=== PATIENT | female | born 1975 | race Caucasian/White ===

== ENCOUNTER 2020-06-22 19:10 | Emergency (ER) | payer BC ==
--- NOTE | 2020-06-22 19:24 | ED Physician Documentation ---
History of Present Illness - Stated complaint Stated Complaint: FEMALE - Chief complaint Chief Complaint: UTI - History obtained from History obtained from: Patient - History of Present Illness Timing: Yesterday Pain level now: 8 Improved by: rest Worsened by: movement - Additonal information Additional information: since yesterday, has had bilateral lower back pain with mild urinary frequency. Today, these symptoms gradually worsened and now associated with burning dysuria and malodorous urine. Back pain (bilateral) has progressed to also cause nausea and vomiting. Took azo without improvement. Review of Systems Constitutional: denies: Fever, Chills, Sweats Cardiac: reports: Reviewed and negative Respiratory: reports: Reviewed and negative GI: reports: Nausea, Vomiting. denies: Abdominal Pain : reports: Dysuria, Frequency. 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: LEEP (Cervical surgery), Tubal ligation - Present Medications Home Medications: Ambulatory Orders Medication Instructions Recorded Confirmed Multivitamin [Multivitamins] 1 each PO DAILY 06/07/13 01/20/15 Metformin HCl 500 mg PO BID 11/08/14 01/20/15 Gabapentin 300 mg PO DAILY 01/20/15 01/20/15 Oxycodone HCl/Acetaminophen 1 - 2 each PO Q6H PRN #15 tablet 01/20/15 [Percocet 5-325 mg Tablet] cephALEXin [Keflex] 500 mg PO Q6H 10 Days capsule 01/20/15 HYDROcod/ACETAM 5/325 [[place] 5/325] 1 - 2 ea PO Q6H PRN #15 tablet 06/22/20 Nitrofurantoin Monohyd/M-Cryst 100 mg PO BID #14 capsule 06/22/20 [Macrobid 100 mg Capsule] Ondansetron Odt [Zofran] 4 mg TL Q6H PRN #10 tablet 06/22/20 - Allergies Allergies/Adverse Reactions: Allergies Allergy/AdvReac Type Severity Reaction Status Date / Time Sulfa (Sulfonamide Allergy Intermediate welts Verified 06/22/20 19:16 Antibiotics) adhesive tape Allergy Hives Verified 06/22/20 19:16 - Living Situation Living Arrangement: reports: At home - Social History Does the pt smoke?: Yes Smoking Status: Current every day smoker Does the pt drink ETOH?: No Does the pt have substance abuse?: No - POLST Patient has POLST: No PD ED PE NORMAL - Vitals Vital signs reviewed: Yes - General General: Alert and oriented X 3, Well developed/nourished, Other (waxing and waning discomfort during H+P) - HEENT HEENT: Moist mucous membranes - Neck Neck: Supple, no meningeal sign - Cardiac Cardiac: RRR, No murmur - Respiratory Respiratory: No respiratory distress, Clear bilaterally - Abdomen Abdomen: Soft PD ED PE EXPANDED - Abdomen Abdomen: Tender to palpation (diffusely tender without rebound ) - Back Back: CVA TTP right, CVA TTP left Results - Vitals Vitals: Vital Signs - 24 hr 06/22/20 06/22/20 06/22/20 19:12 21:15 23:37 Temperature 37.1 C 37 C 36.3 C L Heart Rate 98 68 80 Respiratory 20 16 16 Rate Blood Pressure 189/88 H 156/81 H 165/95 H O2 Saturation 97 97 100 Oxygen O2 Source Room air - Labs Labs: Laboratory Tests 06/22/20 06/22/20 06/22/20 19:29 19:45 19:45 WBC 13.4 H RBC 4.79 Hgb 15.0 Hct 44.2 MCV 92.3 MCH 31.3 H MCHC 33.9 RDW 13.3 Plt Count 141 MPV 11.0 H Neut # (Auto) 9.6 H Lymph # (Auto) 2.7 [place] # (Auto) 1.0 Eos # (Auto) 0.1 Baso # (Auto) 0.1 Absolute Nucleated RBC 0.00 Nucleated RBC % 0.0 Sodium 134 L Potassium 3.5 Chloride 94 L Carbon Dioxide 23 Anion Gap 17.0 H BUN 12 Creatinine 0.7 Estimated GFR (MDRD) 92 Glucose 384 H Calcium 9.1 Total Bilirubin 0.5 AST 31 ALT 50 Alkaline Phosphatase 90 Total Protein 7.0 Albumin 3.9 Globulin 3.1 Albumin/Globulin Ratio 1.3 Lipase 57 H Urine Color ORANGE Urine Clarity CLEAR Urine pH 5.0 Ur Specific [place] 1.015 Urine Protein Urine Glucose (UA) Urine Ketones Urine Occult Blood Urine Nitrite Urine Bilirubin NEGATIVE Urine Urobilinogen Ur Leukocyte Esterase Urine RBC 6-10 H Urine WBC 11-25 H Ur Squamous Epith Cells MOD Squamous H Urine Bacteria Few Ur Microscopic Review INDICATED Urine Culture Comments NOT INDICATED - Rads (name of study) CT A/P with IV contrast Radiology: Prelim report reviewed, See rad report PD MEDICAL DECISION MAKING - ED course Complexity details: reviewed results, re-evaluated patient, considered differential, d/w patient Departure - Departure Disposition: 01 Home, Self Care Clinical Impression: Urinary tract infection Condition: Good Instructions: ED UTI Cystitis Female Prescriptions: Nitrofurantoin Monohyd/M-Cryst [Macrobid 100 mg Capsule] 100 mg PO BID #14 capsule HYDROcod/ACETAM 5/325 [[place] 5/325] 1 - 2 ea PO Q6H PRN #15 tablet PRN Reason: Pain Ondansetron Odt [Zofran] 4 mg TL Q6H PRN #10 tablet PRN Reason: Nausea / Vomiting Discharge Date/Time: 06/22/20 23:50
[2020-06-22] MEDS ORDERED: ONDANSETRON 4 MG/2 ML VIAL IVP STA ×2 (19:37→22:51)
[2020-06-22] MEDS ORDERED: SODIUM CHLORIDE 0.9% 1,000 ML IV STA (19:37)
[2020-06-22] MEDS ORDERED: KETOROLAC 30 MG/ML VIAL IVP STA (19:38)
[2020-06-22 19:51] LABS: BASOPHILS # (AUTO) 0.1 10^3/uL (0.0-0.1); BASOPHILS % (AUTO) 0.4 %; EOSINOPHILS # (AUTO) 0.1 10^3/uL (0.0-0.7); EOSINOPHILS % (AUTO) 0.6 %; LYMPHOCYTES # (AUTO) 2.7 10^3/uL (1.5-3.5); LYMPHOCYTES % (AUTO) 20.1 %; MEAN CORPUSCULAR HEMOGLOBIN 31.3 pg (27.0-31.0); MEAN CORPUSCULAR HGB CONC 33.9 g/dL (32.0-36.0); MEAN CORPUSCULAR VOLUME 92.3 fL (81.0-99.0); MONOCYTES % (AUTO) 7.1 %; NEUTROPHILS # (AUTO) 9.6 10^3/uL (1.5-6.6); NEUTROPHILS % (AUTO) 71.4 %; PLT - PLATELET COUNT 141 10^3/uL (130-450); RED BLOOD COUNT 4.79 10^6/uL (4.20-5.40); RED CELL DISTRIBUTION WIDTH 13.3 % (12.0-15.0); WHITE BLOOD COUNT 13.4 x10^3/uL (4.8-10.8)
[2020-06-22 20:06] LABS: ALBUMIN 3.9 g/dL (3.2-5.5); ALBUMIN/GLOBULIN RATIO 1.3 (1.0-2.2); BILIRUBIN,TOTAL 0.5 mg/dL (0.2-1.0); CALCIUM 9.1 mg/dL (8.5-10.3); CREATININE 0.7 mg/dL (0.4-1.0)
[2020-06-22 20:23] LABS: BILIRUBIN,URINE NEGATIVE (NEGATIVE)
[2020-06-22 20:31] LABS: CLARITY,URINE CLEAR (CLEAR)
[2020-06-22 20:33] LABS: BACTERIA,URINE Few /HPF (None Seen); SQUAMOUS EPITHELIAL CELL,UR MOD Squamous (<= Few)
[2020-06-22] MEDS ORDERED: IOVERSOL 320 100 ML VIAL IVP ONE ×2 (21:11→21:37)
--- NOTE | 2020-06-22 22:05 | CT Report ---
PROCEDURE: Abdomen/Pelvis W INDICATIONS: abd. pain CONTRAST: IV CONTRAST: Optiray 320 ml: 100 PO CONTRAST: *NO PO CONTRAST TECHNIQUE: After the administration of intravenous contrast, 5 mm thick sections acquired from the diaphragms to the symphysis. 5 mm thick coronal and sagittal reformats were acquired. For radiation dose reducti on, the following was used: automated exposure control, adjustment of mA and/or kV according to luís ent size. COMPARISON: None. FINDINGS: Image quality: Excellent. ABDOMEN: Lung bases: Lung bases are clear. Heart size is normal. Solid organs: The liver is diffusely enlarged with hepatic steatosis. Spleen is normal in size. Gallb ladder is unremarkable. Biliary system is non dilated. Pancreas enhances normally. No adrenal nodu les. Kidneys demonstrate normal size and enhancement, without hydronephrosis. Peritoneum and bowel: Bowel loops demonstrate normal wall thickness and caliber. No free fluid or a ir. Nodes and vessels: No retroperitoneal or mesenteric adenopathy by size criteria. Aorta and inferior vena cava are normal in size. Miscellaneous: No ventral hernias. PELVIS: Genitourinary: Bladder wall thickness is normal. Miscellaneous: No inguinal hernias or adenopathy. 4.1 cm right adnexal cyst. Bilateral tubal ligati on clips. Bones: No suspicious bony lesions. No vertebral body compression fractures. IMPRESSION: 1. Hepatomegaly, diffuse hepatic steatosis. 2. 4.1 cm right adnexal cyst. 3. No other significant findings. Reviewed by: Mingo James MD on 06/22/2020 10:04 PM PDT Approved by: Mingo James MD on 06/22/2020 10:04 PM PDT Station ID: [id number]
[2020-06-22 23:38] VITALS: BP 165/95
[2020-06-22] MEDS ORDERED: NITROFURANTOIN MACRO 100 MG CAPSULE PO STA (23:39)
== END 2020-06-22 23:50 | disposition home or self-care (01) ==
LOC: ED 19:10
DX: N39.0 Urinary tract infection, site not specified (principal); K76.0 Fatty (change of) liver, not elsewhere classified; E11.9 Type 2 diabetes mellitus without complications; Z79.84 Long term (current) use of oral hypoglycemic drugs; F17.200 Nicotine dependence, unspecified, uncomplicated
CPT/HCPCS: 36415; 74177; 80053; 81001; 83690; 85025; 96361; 96374; 96375; 99284; A9270; Q9967; 81003; 87086

== ENCOUNTER 2020-07-11 09:25 | Outpatient (CLI) | payer BC ==
[2020-07-11 14:54] LABS: BASOPHILS % (AUTO) 0.3 %; EOSINOPHILS # (AUTO) 0.1 10^3/uL (0.0-0.7); EOSINOPHILS % (AUTO) 1.1 %; HGB - HEMOGLOBIN 15.8 g/dL (12.0-16.0); LYMPHOCYTES # (AUTO) 2.8 10^3/uL (1.5-3.5); LYMPHOCYTES % (AUTO) 27.6 %; MEAN CORPUSCULAR HEMOGLOBIN 30.3 pg (27.0-31.0); MEAN CORPUSCULAR HGB CONC 32.7 g/dL (32.0-36.0); MEAN CORPUSCULAR VOLUME 92.7 fL (81.0-99.0); MEAN PLATELET VOLUME 10.4 fL (7.9-10.8); MONOCYTES # (AUTO) 0.6 10^3/uL (0.0-1.0); MONOCYTES % (AUTO) 5.9 %; NEUTROPHILS # (AUTO) 6.5 10^3/uL (1.5-6.6); NEUTROPHILS % (AUTO) 64.6 %; RED BLOOD COUNT 5.21 10^6/uL (4.20-5.40); RED CELL DISTRIBUTION WIDTH 12.7 % (12.0-15.0)
[2020-07-11 15:16] LABS: PLATELET ESTIMATE, MANUAL NORMAL (130-450,000) (NORMAL); PLATELET MORPHOLOGY PLATELET CLUMPING (NORMAL); RBC MORPHOLOGY (MULTIPLE) NORMAL APPEARANCE (NORMAL)
[2020-07-11 15:23] LABS: ALBUMIN 4.1 g/dL (3.2-5.5); ALBUMIN/GLOBULIN RATIO 1.2 (1.0-2.2); ALKALINE PHOSPHATASE 86 IU/L (42-121); ALT ALANINE AMINOTRANSFERASE 59 IU/L (10-60); AST ASPARTATE AMINOTRANSFERASE 34 IU/L (10-42); BILIRUBIN,TOTAL 0.8 mg/dL (0.2-1.0); BUN - BLOOD UREA NITROGEN 12 mg/dL (6-20); CALCIUM 9.4 mg/dL (8.5-10.3); CARBON DIOXIDE - CO2 25 mmol/L (21-32); CHLORIDE 100 mmol/L (101-111); CHOL/HDL RATIO 6.4 (<4.4); CHOLESTEROL 270 mg/dL; CREATININE 0.7 mg/dL (0.4-1.0); GLUCOSE 271 mg/dL (70-100); HDL CHOLESTEROL 42 mg/dL; SODIUM 135 mmol/L (135-145); TOTAL PROTEIN 7.5 g/dL (6.7-8.2)
[2020-07-11 15:36] LABS: CREATININE,URINE 163.2 mg/dL; MICROALBUM/CREATININE RATIO,UR 134.2 ug/mg (<30.0); MICROALBUMIN,URINE 21.9 mg/dL (0-300.0)
[2020-07-11 15:45] LABS: LDL CHOLESTEROL,DIRECT 187 mg/dL; LDLD/HDL RATIO 4.5 (<4.4)
[2020-07-11 20:43] LABS: HEMOGLOBIN A1c% 12.3 % (4.27-6.07)
== END 2020-07-11 09:26 | disposition home or self-care (01) ==
LOC: LAB.S 09:25
PROVIDERS: ATTEND Nurse Practitioner Family
DX: E11.9 Type 2 diabetes mellitus without complications (principal); R03.0 Elevated blood-pressure reading, without diagnosis of hypertension
CPT/HCPCS: 36415; 80053; 80061; 82043; 82570; 83036; 83721; 84443; 85025

== ENCOUNTER 2020-08-13 08:34 | Outpatient (CLI) | payer BC ==
--- NOTE | 2020-08-13 11:42 | Ultrasound Report ---
PROCEDURE: Abdomen Complete INDICATIONS: +MURPHYS SIGN TECHNIQUE: Real-time scanning was performed of the abdominal and retroperitoneal organs, with image documentatio n. COMPARISON: None. FINDINGS: Liver: The liver measures 19.5 cm in length and demonstrates increased echogenicity. Gallbladder: The gallbladder wall measures 3 mm in diameter. No stones, sludge, pericholecystic fluid , or sonographic Hidalgo sign. A 4 mm diameter gallbladder polyp is noted in the fundus. Biliary ducts: Intrahepatic bile ducts are non-dilated. Extrahepatic bile duct caliber measures 5 m m. Normal is 6-7 mm or less in diameter, or 10 mm or less post-cholecystectomy. Pancreas: Visualized portions of the pancreas are sonographically normal. The tail is only partiall y visualized. Spleen: Spleen is normal in size and homogeneous in echotexture. Kidneys: Kidneys are normal in size and echotexture. Right kidney measures 12.7 cm long; left kidne y measures 13.7 cm long. No hydronephrosis or nephrolithiasis. No solid masses. There is a 1.2 cm right renal anechoic cyst. Aorta: Visualized aorta is normal in caliber at less than 3 cm. Iliacs: Proximal common iliac arteries are normal in caliber at less than 2.5 cm. IVC: Intrahepatic inferior vena cava is patent. Miscellaneous: No free abdominal fluid. IMPRESSION: 1. No cholelithiasis or findings to suggest choledocholithiasis or acute cholecystitis. 2. 4 mm gallbladder polyp. Given small size, no further follow-up recommended. 3. Hepatic steatosis and hepatomegaly. Reviewed by: Franchesca Lau MD on 08/13/2020 11:40 AM PDT Approved by: Franchesca Lau MD on 08/13/2020 11:40 AM PDT Station ID: [id number]
== END 2020-08-13 08:35 | disposition home or self-care (01) ==
LOC: DI 08:34
PROVIDERS: ATTEND Nurse Practitioner Family
DX: K82.4 Cholesterolosis of gallbladder (principal); K76.0 Fatty (change of) liver, not elsewhere classified
CPT/HCPCS: 76700

== ENCOUNTER 2020-08-25 09:19 | Outpatient (CLI) | payer BC ==
[2020-08-25 17:22] LABS: ALBUMIN 4.1 g/dL (3.2-5.5); ALBUMIN/GLOBULIN RATIO 1.3 (1.0-2.2); ALKALINE PHOSPHATASE 54 IU/L (42-121); ALT ALANINE AMINOTRANSFERASE 33 IU/L (10-60); AST ASPARTATE AMINOTRANSFERASE 20 IU/L (10-42); BILIRUBIN,TOTAL 0.5 mg/dL (0.2-1.0); BUN - BLOOD UREA NITROGEN 15 mg/dL (6-20); CARBON DIOXIDE - CO2 24 mmol/L (21-32); CHLORIDE 101 mmol/L (101-111); CHOLESTEROL 95 mg/dL; CREATININE 0.6 mg/dL (0.4-1.0); GLUCOSE 128 mg/dL (70-100); HDL CHOLESTEROL 32 mg/dL; LDL CHOLESTEROL,CALCULATED 31 mg/dL; SODIUM 135 mmol/L (135-145); TOTAL PROTEIN 7.2 g/dL (6.7-8.2); VLDL CHOLESTEROL 32 mg/dL
== END 2020-08-25 09:20 | disposition home or self-care (01) ==
LOC: LAB.S 09:19
PROVIDERS: ATTEND Nurse Practitioner Family
DX: E78.2 Mixed hyperlipidemia (principal)
CPT/HCPCS: 36415; 80053; 80061; 83721

== ENCOUNTER 2020-10-03 07:03 | Outpatient (CLI) | payer BC ==
[2020-10-03 16:28] LABS: CHOLESTEROL 117 mg/dL; HDL CHOLESTEROL 39 mg/dL; LDL CHOLESTEROL,CALCULATED 47 mg/dL; LDL/HDL RATIO 1.2 (<4.4); VLDL CHOLESTEROL 31 mg/dL
[2020-10-03 19:45] LABS: HEMOGLOBIN A1c% 8.5 % (4.27-6.07)
== END 2020-10-03 07:04 | disposition home or self-care (01) ==
LOC: LAB.S 07:03
PROVIDERS: ATTEND Nurse Practitioner Family
DX: E78.2 Mixed hyperlipidemia (principal); E11.65 Type 2 diabetes mellitus with hyperglycemia
CPT/HCPCS: 36415; 80061; 83036; 83721

== ENCOUNTER 2020-10-30 09:25 | Outpatient (CLI) | payer BC ==
[2020-10-30 20:20] LABS: HEMOGLOBIN A1c% 7.5 % (4.27-6.07)
== END 2020-10-30 09:26 | disposition home or self-care (01) ==
LOC: LAB.S 09:25
PROVIDERS: ATTEND Nurse Practitioner Family
DX: E11.65 Type 2 diabetes mellitus with hyperglycemia (principal)
CPT/HCPCS: 36415; 83036

== ENCOUNTER 2021-01-06 09:27 | Outpatient (CLI) | payer BC ==
[2021-01-06 20:39] LABS: ESTIMATED AVERAGE GLUCOSE 154 mg/dL (70-100)
== END 2021-01-06 09:28 | disposition home or self-care (01) ==
LOC: LAB.S 09:27
PROVIDERS: ATTEND Nurse Practitioner Family
DX: E11.65 Type 2 diabetes mellitus with hyperglycemia (principal)
CPT/HCPCS: 36415; 83036

== ENCOUNTER 2021-02-20 20:49 | Emergency (ER) | payer BC ==
[2021-02-20] MEDS ORDERED: ONDANSETRON 4 MG/2 ML VIAL IVP STA (21:07)
[2021-02-20 21:34] LABS: BASOPHILS % (AUTO) 0.3 %; EOSINOPHILS # (AUTO) 0.3 10^3/uL (0.0-0.7); EOSINOPHILS % (AUTO) 2.2 %; HCT - HEMATOCRIT 39.7 % (37.0-47.0); HGB - HEMOGLOBIN 12.9 g/dL (12.0-16.0); LYMPHOCYTES # (AUTO) 3.4 10^3/uL (1.5-3.5); LYMPHOCYTES % (AUTO) 22.6 %; MEAN CORPUSCULAR HEMOGLOBIN 29.3 pg (27.0-31.0); MEAN CORPUSCULAR HGB CONC 32.5 g/dL (32.0-36.0); MONOCYTES # (AUTO) 0.9 10^3/uL (0.0-1.0); MONOCYTES % (AUTO) 5.8 %; NEUTROPHILS # (AUTO) 10.5 10^3/uL (1.5-6.6); NEUTROPHILS % (AUTO) 68.8 %; PLT - PLATELET COUNT 273 10^3/uL (130-450); RED BLOOD COUNT 4.41 10^6/uL (4.20-5.40); RED CELL DISTRIBUTION WIDTH 12.7 % (12.0-15.0); WHITE BLOOD COUNT 15.2 x10^3/uL (4.8-10.8)
[2021-02-20 21:47] LABS: ALBUMIN 4.6 g/dL (3.2-5.5); ALBUMIN/GLOBULIN RATIO 1.6 (1.0-2.2); BILIRUBIN,TOTAL 0.6 mg/dL (0.2-1.0); CALCIUM 9.7 mg/dL (8.5-10.3); CREATININE 0.7 mg/dL (0.4-1.0); POTASSIUM 3.6 mmol/L (3.5-5.0); TOTAL PROTEIN 7.5 g/dL (6.7-8.2)
[2021-02-20 21:53] LABS: BILIRUBIN,URINE NEGATIVE (NEGATIVE); GLUCOSE, URINE (UA) NEGATIVE (NEGATIVE); KETONES,URINE (UA) NEGATIVE (NEGATIVE); LEUKOCYTE ESTERASE, URINE TRACE (NEGATIVE); NITRITE,URINE NEGATIVE (NEGATIVE); OCCULT BLOOD,URINE LARGE (NEGATIVE); PROTEIN,URINE 30 mg/dL (NEGATIVE); UROBILINOGEN,URINE 0.2 (NORMAL) E.U./dL (NORMAL)
[2021-02-20 21:55] LABS: CLARITY,URINE HAZY (CLEAR); HCG UR QUAL NEGATIVE
[2021-02-20 22:01] LABS: BACTERIA,URINE Few /HPF (None Seen); RBC,URINE TNTC /HPF (0-5); SQUAMOUS EPITHELIAL CELL,UR FEW Squamous (<= Few)
[2021-02-20] MEDS ORDERED: PROMETHAZINE INJ 25 MG in SODIUM CHLORIDE 0.9% 50 ML IV STA (22:08)
[2021-02-20] MEDS ORDERED: PROMETHAZINE 25 MG/1 ML VIAL ONE (22:23)
[2021-02-20] MEDS ORDERED: MAG HYDROX/AL HYDROX/SIMETH 30 ML UDC PO STA (22:37)
[2021-02-20] MEDS ORDERED: SUCRALFATE 1 GM/10 ML UDC PO STA (22:37)
[2021-02-20] MEDS ORDERED: LIDOCAINE VISCOUS 2% 15 ML UDC MM STA (22:37)
--- NOTE | 2021-02-20 22:37 | ED Physician Documentation ---
PD HPI ABD PAIN - Stated complaint Stated Complaint: RT ABD PX/NAUSEA - Chief complaint Chief Complaint: Abd Pain - History obtained from History obtained from: Patient - History of Present Illness Timing - onset: Today Timing - duration: Hours Timing - details: Abrupt onset, Still present Quality: Sharp, Pain Location: Epigastric, LUQ Radiation: No: Chest, , Lower back, Left flank, Left shoulder, Right flank, Right shoulder, Upper back Improved by: Laying still, Vomiting Worsened by: Eating, Palpation Associated symptoms: Nausea, Vomiting, Diarrhea. No: Fever Similar symptoms before: No diagnosis Recently seen: Surgery - Additional information Additional information: 45-year-old female with a history of diabetes has developed acute left upper quadrant abdominal pain today after eating a quesadilla at 2:00 in the afternoon. She had onset of the pain several hours later it has been severe she has been unable to eat dinner to concentrate on anything. She has nausea and vomiting associated with this and she has had episodes of these previously but none for about 5 years. She has recently had surgery on her right shoulder and following that she was taking some ibuprofen and has switched to meloxicam and has been on meloxicam daily. She denies any alcohol use and denies any current use of ibuprofen or Aleve. She has previously had investigation of this to include an upper GI series and a colonoscopy. 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: LEEP (Cervical surgery), Tubal ligation - Present Medications Home Medications: Ambulatory Orders Medication Instructions Recorded Confirmed Multivitamin [Multivitamins] 1 each PO DAILY 06/07/13 01/20/15 Atorvastatin Calcium 20 mg ORAL DAILY 02/20/21 02/20/21 Insulin Glargine [Lantus Solostar] 43 unit SUBQ QPM 02/20/21 02/20/21 Lisinopril [Prinivil] 5 mg PO DAILY 02/20/21 02/20/21 Meloxicam [Mobic] 1 tablet PO DAILY 02/20/21 02/20/21 Metformin HCl [Metformin ER 1,000 mg ORAL BID 02/20/21 02/20/21 Gastric] Sucralfate [Carafate] 1 gm PO ACHS #60 tablet 02/20/21 - Allergies Allergies/Adverse Reactions: Allergies Allergy/AdvReac Type Severity Reaction Status Date / Time Sulfa (Sulfonamide Allergy Intermediate welts Verified 02/20/21 20:58 Antibiotics) adhesive tape Allergy Hives Verified 02/20/21 20:58 - Social History Does the pt smoke?: Yes Smoking Status: Current every day smoker Does the pt drink ETOH?: No Does the pt have substance abuse?: No - Immunizations Immunizations are current?: No - POLST Patient has POLST: No PD ED PE NORMAL - Vitals Vital signs reviewed: Yes (hypertensive) - General General: Alert and oriented X 3, Well developed/nourished, Other (appears nauseated and in pain ) - HEENT HEENT: Atraumatic, PERRL, EOMI - Neck Neck: Supple, no meningeal sign - Cardiac Cardiac: RRR, No murmur - Respiratory Respiratory: No respiratory distress, Clear bilaterally - Abdomen Abdomen: Normal bowel sounds, Soft, Non distended, No organomegaly, Other (epigastric and LUQ pain to palpation. ) - Back Back: No CVA TTP, No spinal TTP - Derm Derm: Normal color, Warm and dry, No rash - Extremities Extremities: No deformity, No edema - Neuro Neuro: Alert and oriented X 3, branch credit counselor 2-12 intact, No motor deficit, No sensory deficit, Normal speech Eye Opening: Spontaneous Motor: Obeys Commands Verbal: Oriented GCS Score: 15 - Psych Psych: Normal mood, Normal affect Results - Vitals Vitals: Vital Signs - 24 hr 02/20/21 02/20/21 02/20/21 20:57 21:32 23:10 Temperature 36.8 C Heart Rate 91 83 Respiratory 21 15 16 Rate Blood Pressure 186/106 H 167/81 H 162/82 H O2 Saturation 99 99 97 Oxygen O2 Source Room air - Labs Labs: Laboratory Tests 02/20/21 02/20/21 02/20/21 21:28 21:28 21:46 WBC 15.2 H RBC 4.41 Hgb 12.9 Hct 39.7 MCV 90.0 MCH 29.3 MCHC 32.5 RDW 12.7 Plt Count 273 MPV 9.0 Neut # (Auto) 10.5 H Lymph # (Auto) 3.4 [place] # (Auto) 0.9 Eos # (Auto) 0.3 Baso # (Auto) 0.0 Absolute Nucleated RBC 0.00 Nucleated RBC % 0.0 Sodium 141 Potassium 3.6 Chloride 104 Carbon Dioxide 26 Anion Gap 11.0 BUN 22 H Creatinine 0.7 Estimated GFR (MDRD) 91 Glucose 146 H Calcium 9.7 Total Bilirubin 0.6 AST 27 ALT 40 Alkaline Phosphatase 53 Total Protein 7.5 Albumin 4.6 Globulin 2.9 Albumin/Globulin Ratio 1.6 Lipase 51 Urine Color YELLOW Urine Clarity HAZY Urine pH 6.0 Ur Specific [place] >=1.030 H Urine Protein 30 H Urine Glucose (UA) NEGATIVE Urine Ketones NEGATIVE Urine Occult Blood LARGE H Urine Nitrite NEGATIVE Urine Bilirubin NEGATIVE Urine Urobilinogen 0.2 (NORMAL) Ur Leukocyte Esterase TRACE H Urine RBC TNTC H Urine WBC 6-10 H Ur Squamous Epith Cells FEW Squamous Urine Bacteria Few Ur Microscopic Review INDICATED Urine Culture Comments INDICATED Urine HCG, Qual 02/20/21 21:46 WBC RBC Hgb Hct MCV MCH MCHC RDW Plt Count MPV Neut # (Auto) Lymph # (Auto) [place] # (Auto) Eos # (Auto) Baso # (Auto) Absolute Nucleated RBC Nucleated RBC % Sodium Potassium Chloride Carbon Dioxide Anion Gap BUN Creatinine Estimated GFR (MDRD) Glucose Calcium Total Bilirubin AST ALT Alkaline Phosphatase Total Protein Albumin Globulin Albumin/Globulin Ratio Lipase Urine Color Urine Clarity Urine pH Ur Specific [place] Urine Protein Urine Glucose (UA) Urine Ketones Urine Occult Blood Urine Nitrite Urine Bilirubin Urine Urobilinogen Ur Leukocyte Esterase Urine RBC Urine WBC Ur Squamous Epith Cells Urine Bacteria Ur Microscopic Review Urine Culture Comments Urine HCG, Qual NEGATIVE PD MEDICAL DECISION MAKING - ED course Complexity details: reviewed old records, reviewed results, re-evaluated patient, considered differential, d/w patient ED course: 45-year-old female with an episode of nausea vomiting and epigastric abdominal pain does not have relief of her nausea with Zofran and we subsequently administered 25 mg of Phenergan also without relief. We eventually were able to get relief of the nausea with 2 mg of Haldol given intravenously. Following that she was administered a GI cocktail consisting of viscous lidocaine Mylanta and Carafate. She had some relief of her epigastric pain and has some persistence of the left upper quadrant pain. She has no CVA tenderness. She has no urinary tract symptoms. She is on her menses. The findings on her laboratory evaluation show normal electrolytes and there is evidence of dehydration on the urine specific gravity and she is administered saline as well. She is given a dose of Protonix. Her exam and findings are consistent with a gastritis and the suspicion is this is related to the meloxicam. We will treat for gastritis and the patient will use an alternative form of pain medication. Departure - Departure Disposition: 01 Home, Self Care Clinical Impression: Dehydration Gastritis Qualifiers: Gastritis type: unspecified gastritis Chronicity: acute Gastritis bleeding: without bleeding Qualified Code(s): K29.00 - Acute gastritis without bleeding Condition: Stable Instructions: ED PUD Vs Gastritis, ED Dehydration Follow-Up: JESSICA BRIONES ARNP [Primary Care Provider] - Prescriptions: Sucralfate [Carafate] 1 gm PO ACHS #60 tablet Comments: Today it appears your abdominal pain is related to your stomach and this likely represents a gastritis or inflammation to the stomach or duodenum. This can be an ulcer or similar to an ulcer. The treatment recommended is to take something to reduce the acid in your stomach such as Pepcid AC or Nexium. These are available [id number]. Take them regularly for 2 weeks. In addition I have prescribed some Carafate which is used to aid in healing of the stomach lining and. Meloxicam can cause an issue with stomach ulcer. The recommendation is to discontinue this medication and substitute with Tylenol or use topical therapy.
[2021-02-20] MEDS ORDERED: HALOPERIDOL 5 MG/ML VIAL IVP ONE (22:44)
[2021-02-20] MEDS ORDERED: SODIUM CHLORIDE 0.9% 1,000 ML IV STA (23:16)
[2021-02-20] MEDS ORDERED: PANTOPRAZOLE 40 MG VIAL IVP STA (23:28)
[2021-02-21 00:37] VITALS: BP 146/80
== END 2021-02-21 00:30 | disposition home or self-care (01) ==
LOC: ED 20:49
DX: K29.00 Acute gastritis without bleeding (principal); E86.0 Dehydration; E11.9 Type 2 diabetes mellitus without complications; F17.200 Nicotine dependence, unspecified, uncomplicated; Z79.4 Long term (current) use of insulin; Z79.899 Other long term (current) drug therapy
CPT/HCPCS: 36415; 80053; 81001; 81025; 83690; 85025; 87086; 96361; 96365; 96375; 99284; 99285; A9270; J7040; 81003

== ENCOUNTER 2021-05-05 19:37 | Observation (INO) | payer BC ==
--- NOTE | 2021-05-05 20:26 | ED Physician Documentation ---
PD HPI ABD PAIN - Stated complaint Stated Complaint: RT SIDE PX,NAUSEA - Chief complaint Chief Complaint: Abd Pain - History obtained from History obtained from: Patient - History of Present Illness Timing - onset: How many hours ago (4-5), Today Timing - duration: Hours (4-5) Timing - details: Abrupt onset (onset this afternoon of fairly abrupt pain right mid abdomen associated with nausea. Pain has persisted localized to the right mid to lower abd.), Still present Quality: Cramping, Aching, Pain Location: RLQ (initially right mid abdomen, then migrating to right lower.) Radiation: No: Chest, Lower back, Right flank Improved by: No: Eating, Position Worsened by: Moving, Palpation. No: Breathing Associated symptoms: Nausea, Diarrhea (couple of loose stools since onset of pain, but not diarrhea per se.), Loss of appetite. No: Fever, Vomiting, Constipation, Near syncope / syncope Similar symptoms before: Has not had sx before Recently seen: Not recently seen Review of Systems Constitutional: denies: Fever, Chills, Myalgias Nose: denies: Rhinorrhea / runny nose, Congestion Throat: denies: Sore throat Respiratory: denies: Cough GI: reports: Abdominal Pain (just today), Nausea. denies: Vomiting, C onstipation : denies: Dysuria, Frequency, Discharge Neurologic: reports: Generalized weakness. 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: LEEP (Cervical surgery), Tubal ligation - Present Medications Home Medications: Ambulatory Orders Medication Instructions Recorded Confirmed Multivitamin [Multivitamins] 1 each PO DAILY 06/07/13 01/20/15 Atorvastatin Calcium 20 mg ORAL DAILY 02/20/21 02/20/21 Insulin Glargine [Lantus Solostar] 43 unit SUBQ QPM 02/20/21 02/20/21 Meloxicam [Mobic] 1 tablet PO DAILY 02/20/21 02/20/21 Metformin HCl [Metformin ER 1,000 mg ORAL BID 02/20/21 02/20/21 Gastric] Sucralfate [Carafate] 1 gm PO ACHS #60 tablet 02/20/21 lisinopriL [Prinivil] 5 mg PO DAILY 02/20/21 02/20/21 - Allergies Allergies/Adverse Reactions: Allergies Allergy/AdvReac Type Severity Reaction Status Date / Time Sulfa (Sulfonamide Allergy Intermediate welts Verified 05/05/21 19:46 Antibiotics) adhesive tape Allergy Hives Verified 05/05/21 19:46 - Living Situation Living Arrangement: reports: At home - Social History Does the pt smoke?: Yes Smoking Status: Current every day smoker Does the pt drink ETOH?: No Does the pt have substance abuse?: No - Family History Family history: reports: Non contributory - Immunizations Immunizations are current?: No - POLST Patient has POLST: No PD ED PE NORMAL - Vitals Vital signs reviewed: Yes - General General: Alert and oriented X 3, Well developed/nourished, Other (appears in pain right abd.) - HEENT HEENT: Pharynx benign - Neck Neck: Supple, no meningeal sign, No adenopathy - Cardiac Cardiac: No murmur. No: RRR (regular but tachycardic) - Respiratory Respiratory: Clear bilaterally - Abdomen Abdomen: Soft, Non distended, Other (tender right mid to right lower abd with guarding and some percussion tenderness. No rebound at this time. Mild referred tender from periumbilical area. ). No: Normal bowel sounds (diminished) - Female Female : Deferred - Rectal Rectal: Deferred - Back Back: No CVA TTP - Derm Derm: Normal color, Warm and dry - Extremities Extremities: Normal ROM s pain, No edema, No calf tenderness / cord - Neuro Neuro: Alert and oriented X 3, No motor deficit, Normal speech Results - Vitals Vitals: Vital Signs - 24 hr 05/05/21 05/05/21 05/05/21 19:43 19:46 21:46 Temperature 36.3 C L 36.5 C 37.6 C Heart Rate 112 H 112 H 98 Respiratory 20 20 18 Rate Blood Pressure 150/76 H 150/72 H 144/73 H O2 Saturation 99 99 95 Oxygen O2 Source Room air - Labs Labs: Laboratory Tests 05/05/21 05/05/21 05/05/21 20:10 20:14 20:36 WBC 24.0 H RBC 4.44 Hgb 13.0 Hct 39.0 MCV 87.8 MCH 29.3 MCHC 33.3 RDW 13.4 Plt Count 241 MPV 9.7 Neut # (Auto) 20.7 H Lymph # (Auto) 2.1 [place] # (Auto) 1.0 Eos # (Auto) 0.1 Baso # (Auto) 0.1 Absolute Nucleated RBC 0.00 Band Neuts % (Manual) Not Reportable Abnorm Lymph % (Manual) Not Reportable Nucleated RBC % 0.0 Neutrophils # (Manual) Not Reportable Lymphocytes # (Manual) Not Reportable Monocytes # (Manual) Not Reportable Eosinophils # (Manual) Not Reportable Basophils # (Manual) Not Reportable Differential Comment MANUAL=AUTO DIFF Manual Slide Review Indicated Platelet Estimate NORMAL (130-450,000) Platelet Morphology NORMAL APPEARANCE RBC Morph Micro Appear NORMAL APPEARANCE Sodium 135 Potassium 4.0 Chloride 99 L Carbon Dioxide 22 Anion Gap 14.0 H BUN 18 Creatinine 0.9 Estimated GFR (MDRD) 68 L Glucose 207 H Calcium 9.7 Total Bilirubin 1.0 AST 25 ALT 28 Alkaline Phosphatase 57 Total Protein 7.7 Albumin 4.7 Globulin 3.0 Albumin/Globulin Ratio 1.6 Lipase 44 Urine Color YELLOW Urine Clarity CLEAR Urine pH 5.5 Ur Specific [place] >=1.030 H Urine Protein 30 H Urine Glucose (UA) NEGATIVE Urine Ketones 15 H Urine Occult Blood NEGATIVE Urine Nitrite NEGATIVE Urine Bilirubin NEGATIVE Urine Urobilinogen 0.2 (NORMAL) Ur Leukocyte Esterase NEGATIVE Urine RBC None Seen Urine WBC 0-3 Ur Squamous Epith Cells MANY Squamous H Urine Bacteria Rare Urine Mucus Moderate Strands Ur Microscopic Review INDICATED Urine Culture Comments NOT INDICATED Urine HCG, Qual NEGATIVE - Rads (name of study) abd CT Radiology: Prelim report reviewed (acute appendicitis with appendix width up to 10 mm. No perforation nor abscess. ), See rad report PD MEDICAL DECISION MAKING - ED course Complexity details: reviewed results (acute appendicitis), re-evaluated patient (improved pain and nausea with IV meds. ), considered differential (appendix versus kidney stone, versus low pain from gallbladder or other process are considered. Will get labs, UA, and CT. ), d/w patient, d/w cognos consultant (Dr. Mao) Departure - Departure Disposition: ED Place in Observation Condition: Stable Record reviewed to determine appropriate education?: Yes Discharge Date/Time: 05/05/21 23:05
[2021-05-05 20:28] LABS: BILIRUBIN,URINE NEGATIVE (NEGATIVE); GLUCOSE, URINE (UA) NEGATIVE (NEGATIVE); KETONES,URINE (UA) 15 mg/dL (NEGATIVE); LEUKOCYTE ESTERASE, URINE NEGATIVE (NEGATIVE); NITRITE,URINE NEGATIVE (NEGATIVE); OCCULT BLOOD,URINE NEGATIVE (NEGATIVE); PH,URINE 5.5 PH (5.0-7.5); PROTEIN,URINE 30 mg/dL (NEGATIVE); UROBILINOGEN,URINE 0.2 (NORMAL) E.U./dL (NORMAL)
[2021-05-05 20:29] LABS: CLARITY,URINE CLEAR (CLEAR)
[2021-05-05] MEDS ORDERED: KETOROLAC 15 MG/ML VIAL IVP STA (20:35)
[2021-05-05] MEDS ORDERED: SODIUM CHLORIDE 0.9% 1,000 ML IV STA ×2 (20:35→22:19)
[2021-05-05] MEDS ORDERED: HYDROmorphone 1 MG/ML CARPUJECT IVP STA ×2 (20:35→21:34)
[2021-05-05] MEDS ORDERED: ONDANSETRON 4 MG/2 ML VIAL IVP STA (20:35)
[2021-05-05 20:37] LABS: ALBUMIN 4.7 g/dL (3.2-5.5); ALBUMIN/GLOBULIN RATIO 1.6 (1.0-2.2); CALCIUM 9.7 mg/dL (8.5-10.3); CREATININE 0.9 mg/dL (0.4-1.0); TOTAL PROTEIN 7.7 g/dL (6.7-8.2)
[2021-05-05 20:37] LABS: HCG UR QUAL NEGATIVE
[2021-05-05 20:43] LABS: BASOPHILS # (AUTO) 0.1 10^3/uL (0.0-0.1); BASOPHILS % (AUTO) 0.3 %; EOSINOPHILS # (AUTO) 0.1 10^3/uL (0.0-0.7); EOSINOPHILS % (AUTO) 0.3 %; LYMPHOCYTES # (AUTO) 2.1 10^3/uL (1.5-3.5); LYMPHOCYTES % (AUTO) 8.5 %; MEAN CORPUSCULAR HEMOGLOBIN 29.3 pg (27.0-31.0); MEAN CORPUSCULAR HGB CONC 33.3 g/dL (32.0-36.0); MEAN CORPUSCULAR VOLUME 87.8 fL (81.0-99.0); MEAN PLATELET VOLUME 9.7 fL (7.9-10.8); MONOCYTES % (AUTO) 4.1 %; NEUTROPHILS # (AUTO) 20.7 10^3/uL (1.5-6.6); NEUTROPHILS % (AUTO) 86.3 %; PLT - PLATELET COUNT 241 10^3/uL (130-450); RED BLOOD COUNT 4.44 10^6/uL (4.20-5.40); RED CELL DISTRIBUTION WIDTH 13.4 % (12.0-15.0)
[2021-05-05 20:44] LABS: WBC,URINE 0-3 /HPF (0-5)
[2021-05-05 20:45] LABS: BACTERIA,URINE Rare /HPF (None Seen); MUCUS,URINE Moderate Strands; RBC,URINE None Seen /HPF (0-5); SQUAMOUS EPITHELIAL CELL,UR MANY Squamous (<= Few)
[2021-05-05 20:48] LABS: SLIDE REVIEW? Indicated
[2021-05-05] MEDS ORDERED: IOVERSOL 320 100 ML VIAL IVP ONE ×2 (20:48→21:26)
[2021-05-05 21:05] LABS: DIFFERENTIAL COMMENT MANUAL=AUTO DIFF; PLATELET ESTIMATE, MANUAL NORMAL (130-450,000) (NORMAL); PLATELET MORPHOLOGY NORMAL APPEARANCE (NORMAL); RBC MORPHOLOGY (MULTIPLE) NORMAL APPEARANCE (NORMAL)
--- NOTE | 2021-05-05 22:04 | CT Report ---
PROCEDURE: Abdomen/Pelvis W INDICATIONS: right abd pain abrupt today CONTRAST: IV CONTRAST: Optiray 320 ml: 100 PO CONTRAST: *NO PO CONTRAST TECHNIQUE: After the administration of nonionic contrast, 5 mm thick sections acquired from the diaphragms to th e symphysis. 5 mm thick coronal and sagittal reformats were acquired. For radiation dose reduction, the following was used: automated exposure control, adjustment of mA and/or kV according to patient size. COMPARISON: Prior CT abdomen/pelvis 06/22/2020.. FINDINGS: Image quality: Excellent. ABDOMEN: Lung bases: Lung bases are clear. Heart size is normal. Solid organs: Liver and spleen are normal in size and enhancement. Gallbladder appears normal Bili serena system is non dilated. Pancreas enhances normally. No adrenal nodules. Kidneys demonstrate nor mal size and enhancement, without hydronephrosis. Peritoneum and bowel: Bowel loops demonstrate normal wall thickness and caliber. No free fluid or a ir. Nodes and vessels: No retroperitoneal or mesenteric adenopathy by size criteria. Aorta and inferior vena cava are normal in size. Miscellaneous: No ventral hernias. PELVIS: Genitourinary: Bladder wall thickness is normal. Miscellaneous: No inguinal hernias or adenopathy. At the right lower quadrant the appendix is ident ified, and is abnormally edematous with edema tracking into the adjacent cecal mesocolon. An abscess is not seen. The inflamed appendix measures up to 9-10 mm in diameter. Bones: No suspicious bony lesions. No vertebral body compression fractures. IMPRESSION: Acute appendicitis, with edema at the right lower quadrant in the mesenteric fat and wit h mild dilatation of the appendix up to 10 mm in diameter. A periappendiceal abscess has not develope d. Findings immediately called to the emergency room physician caring for the patient. Reviewed by: Delfino Salgado MD on 05/05/2021 10:03 PM PDT Approved by: Delfino Salgado MD on 05/05/2021 10:03 PM PDT Station ID: [id number]
[2021-05-05] MEDS ORDERED: PIPERACILLIN/TAZOBACTAM 3.375 GM in SODIUM CHLORIDE 0.9% MINIBAG 100 ML IV STA (22:19)
[2021-05-05] MEDS ORDERED: ACETAMINOPHEN 325 MG TABLET PO PRN (22:34)
[2021-05-05] MEDS ORDERED: SODIUM CHLORIDE FLUSH 0.9% 10 ML SYRINGE IVP PRN (22:34)
[2021-05-05] MEDS ORDERED: ONDANSETRON 4 MG/2 ML VIAL IVP PRN (22:34)
[2021-05-05] MEDS ORDERED: ZOLPIDEM 5 MG TABLET PO PRN (22:34)
[2021-05-05] MEDS ORDERED: HYDROmorphone 0.5 MG/0.5 ML SYRINGE IVP PRN (22:34)
[2021-05-05] MEDS ORDERED: PROCHLORPERAZINE 10 MG/2 ML VIAL IVP PRN (22:34)
[2021-05-05] MEDS ORDERED: ONDANSETRON ODT 4 MG TABLET TL PRN (22:34)
[2021-05-05] MEDS ORDERED: LACTATED RINGERS 1,000 ML IV SCH (23:00)
[2021-05-05] MEDS: SODIUM CHLORIDE FLUSH 0.9% 10 ML SYRINGE IVP SCH (23:25)
[2021-05-06] MEDS: HYDROmorphone 1 MG/ML CARPUJECT IVP PRN ×5 (01:39→18:38)
[2021-05-06] MEDS: SODIUM CHLORIDE 0.9% 1,000 ML IV SCH ×2 (05:21→14:08)
[2021-05-06] MEDS ORDERED: PIPERACILLIN/TAZOBACTAM 3.375 GM in SODIUM CHLORIDE 0.9% MINIBAG 100 ML IV SCH (06:00)
[2021-05-06] MEDS: SODIUM CHLORIDE FLUSH 0.9% 10 ML SYRINGE IVP SCH ×2 (07:54→17:14)
--- NOTE | 2021-05-06 09:03 | HISTORY & PHYSICAL EXAMINATION ---
Chief Complaint - Chief Complaint Chief Complaint: abdominal pain History of Present Illness - Admitted From Admitted From:: ED - History Obtained From Records Reviewed: yes History obtained from: PT Exam Limitations: none - History of Present Illness HPI Comment/Other: 1 day of progressive right lower quadrant pain. Now hurts to move and take a deep breath. History - Past Medical History Cardiovascular: reports: None Respiratory: reports: None Neuro: reports: None Endocrine/Autoimmune: reports: Type 2 diabetes GI: reports: None GOLD PLATER: reports: None : reports: None HEENT: reports: None Psych: reports: None Musculoskeletal: reports: None, Osteoarthritis Derm: reports: None MRSA Hx?: No - Past Surgical History Ortho: reports: Rotator cuff repair /GOLD PLATER: reports: LEEP (Cervical surgery), Tubal ligation - Family & Social History Living arrangement: At home - POLST Patient has POLST: No Meds/Allgy - Home Medications Home Medications: Ambulatory Orders Medication Instructions Recorded Confirmed Multivitamin [Multivitamins] 1 each PO DAILY 06/07/13 01/20/15 Atorvastatin Calcium 20 mg ORAL DAILY 02/20/21 02/20/21 Insulin Glargine [Lantus Solostar] 43 unit SUBQ QPM 02/20/21 02/20/21 Meloxicam [Mobic] 1 tablet PO DAILY 02/20/21 02/20/21 Metformin HCl [Metformin ER 1,000 mg ORAL BID 02/20/21 02/20/21 Gastric] Sucralfate [Carafate] 1 gm PO ACHS #60 tablet 02/20/21 lisinopriL [Prinivil] 5 mg PO DAILY 02/20/21 02/20/21 - Allergies Allergies/Adverse Reactions: Allergies Allergy/AdvReac Type Severity Reaction Status Date / Time Sulfa (Sulfonamide Allergy Intermediate welts Verified 05/05/21 19:46 Antibiotics) adhesive tape Allergy Hives Verified 05/05/21 19:46 Review of Systems - Constitutional Constitutional: reports: Fatigue (10 pt ros as above otherwise unremarkable) Exam - Vital Signs Reviewed Vital Signs: Yes Vital Signs: Vital Signs x48h Temp Pulse Resp BP BP Pulse Ox 05/06/21 07:37 36.5 C 83 18 114/54 L 99 05/06/21 04:26 36.4 C L 88 22 128/63 96 - Physical Exam General Appearance: positive: No acute distress, Alert Eyes Bilateral: positive: PERRL, EOMI ENT: positive: No signs of dehydration Neck: positive: No JVD Respiratory: positive: Breath sounds nml Cardiovascular: positive: Regular rate & rhythm Abdomen: positive: Tenderness ( right lower quadrant pain and tenderness with peritonitis), Guarding Neurologic/Psychiatric: positive: Oriented x3 Conclusion/Plan - Lab Results Fish Bones: 05/05/21 20:36 05/05/21 20:14 - Diagnostic Imaging Results Diagnostic Imaging Results: positive: Read independently (appendicitis) - Other Other Results/Comments: appendicitis. plan lap appendectomy. parq held and consent obtained.
[2021-05-06] MEDS ORDERED: PROPOFOL 200 MG/20 ML VIAL IVP ONE ×2 (09:14→11:11)
[2021-05-06] MEDS ORDERED: ROCURONIUM 50 MG/5 ML VIAL ONE (09:17)
[2021-05-06] MEDS ORDERED: MIDAZOLAM 2 MG/2 ML VIAL ONE (09:18)
[2021-05-06] MEDS ORDERED: fentaNYL 100 MCG/2 ML VIAL ONE ×2 (09:19→10:49)
--- NOTE | 2021-05-06 09:23 | ANESTHESIA ---
Pre-Anesthesia VS, & Labs - Diagnosis appendicitis - Procedure lap appy Vital Signs: Temp Pulse Resp BP Pulse Ox 36.5 C 83 18 114/54 L 99 05/06/21 07:37 05/06/21 07:37 05/06/21 07:37 05/06/21 07:37 05/06/21 07:37 Height: 5 ft 7 in Weight (kg): 98 kg Body Mass Index: 33.8 BMI Classification: Obese - NPO >8 hours - Is Patient ?: No - Lab Results Current Lab Results: Laboratory Tests 05/05/21 20:36: WBC 24.0 H, RBC 4.44, Hgb 13.0, Hct 39.0, MCV 87.8, MCH 29.3, MCHC 33.3, RDW 13.4, Plt Count 241, MPV 9.7, Neut # (Auto) 20.7 H, Lymph # (Auto) 2.1, Cloud # (Auto) 1.0, Eos # (Auto) 0.1, Baso # (Auto) 0.1, Absolute Nucleated RBC 0.00, Band Neuts % (Manual) Not Reportable, Abnorm Lymph % (Manual) Not Reportable, Nucleated RBC % 0.0, Neutrophils # (Manual) Not Reportable, Lymphocytes # (Manual) Not Reportable, Monocytes # (Manual) Not Reportable, Eosinophils # (Manual) Not Reportable, Basophils # (Manual) Not Reportable, Differential Comment MANUAL=AUTO DIFF, Manual Slide Review Indicated, Platelet Estimate NORMAL (130-450,000), Platelet Morphology NORMAL APPEARANCE, RBC Morph Micro Appear NORMAL APPEARANCE 05/05/21 20:14: Sodium 135, Potassium 4.0, Chloride 99 L, Carbon Dioxide 22, Anion Gap 14.0 H, BUN 18, Creatinine 0.9, Estimated GFR (MDRD) 68 L, Glucose 207 H, Calcium 9.7, Total Bilirubin 1.0, AST 25, ALT 28, Alkaline Phosphatase 57, Total Protein 7.7, Albumin 4.7, Globulin 3.0, Albumin/Globulin Ratio 1.6, Lipase 44 Fish Bones: 05/05/21 20:36 05/05/21 20:14 Home Medications and Allergies Active Medications Acetaminophen (Acetaminophen 325 Mg Tablet) 650 mg PO Q4HR PRN PRN Reason: Pain 1 to 4 Last Admin: 05/06/21 01:15 Dose: 650 mg Documented by: Hydromorphone HCl (Hydromorphone 1 Mg/Ml Carpuject) 1 mg IVP Q2HR PRN PRN Reason: PAIN Last Admin: 05/06/21 07:50 Dose: 1 mg Documented by: Piperacillin Sod/Tazobactam (Sod 3.375 gm/ Sodium Chloride) 100 mls @ 25 mls/hr IV Q8HR [facility] Last Admin: 05/06/21 05:32 Dose: 25 mls/hr Documented by: Sodium Chloride (Normal Saline 0.9%) 1,000 mls @ 100 mls/hr IV .Q10H [facility] Last Admin: 05/06/21 05:21 Dose: 100 mls/hr Documented by: Ondansetron HCl (Ondansetron Odt 4 Mg Tablet) 4 mg TL Q6HR PRN PRN Reason: Nausea / Vomiting Last Admin: 05/06/21 01:15 Dose: 4 mg Documented by: Ondansetron HCl (Ondansetron 4 Mg/2 Ml Vial) 4 mg IVP Q6HR PRN PRN Reason: Nausea / Vomiting Last Admin: 05/06/21 07:50 Dose: 4 mg Documented by: Prochlorperazine Edisylate (Prochlorperazine 10 Mg/2 Ml Vial) 10 mg IVP Q6HR PRN PRN Reason: Nausea / Vomiting Sodium Chloride (Sodium Chloride Flush 0.9% 10 Ml Syringe) 10 ml IVP PRN PRN PRN Reason: NEEDED PER PROVIDER ORDERS Sodium Chloride (Sodium Chloride Flush 0.9% 10 Ml Syringe) 10 ml IVP 0100,0900,1700 [facility] Last Admin: 05/06/21 07:54 Dose: Not Given Documented by: Zolpidem Tartrate (Zolpidem 5 Mg Tablet) 5 mg PO QPM PRN PRN Reason: Insomnia Last Admin: 05/05/21 23:30 Dose: 5 mg Documented by: Multivitamin [Multivitamins] 1 each PO DAILY 06/07/13 Atorvastatin Calcium 20 mg ORAL DAILY 02/20/21 Insulin Glargine [Lantus Solostar] 43 unit SUBQ QPM 02/20/21 Meloxicam [Mobic] 1 tablet PO DAILY 02/20/21 Metformin HCl [Metformin ER Gastric] 1,000 mg ORAL BID 02/20/21 lisinopriL [Prinivil] 5 mg PO DAILY 02/20/21 Allergies/Adverse Reactions: Allergies Allergy/AdvReac Type Severity Reaction Status Date / Time Sulfa (Sulfonamide Allergy Intermediate welts Verified 05/05/21 19:46 Antibiotics) adhesive tape Allergy Hives Verified 05/05/21 19:46 Anes History & Medical History - Anesthetic History Family history of Anesthesia Complications: Denies Family history of Malignant Hyperthermia: Denies - Medical History Cardiovascular: reports: None Pulmonary: reports: None Gastrointestinal: reports: None Urinary: reports: None Neuro: reports: None Musculoskeletal: reports: None, Osteoarthritis Endocrine/Autoimmune: reports: Type 2 diabetes Blood Disorders: reports: None Skin: reports: None Smoking Status: Current every day smoker - Surgical History Gynecologic: reports: LEEP (Cervical surgery), Tubal ligation Orthopedic: reports: Rotator cuff repair Exam General: Alert, Oriented x3, Cooperative Dental: WNL Mouth Openin Fingerbreadth Neck Mobility: Normal Mallampati classification: II Respiratory: Lungs clear Cardiovascular: Regular rate Plan Anesthesia Type: General Consent for Procedure(s) Verified and Reviewed: Yes Code Status: Attempt Resuscitation ASA classification: 2-Mild systemic disease Is this case an emergency?: No
[2021-05-06] MEDS ORDERED: BUPIVACAINE 0.25% PF 30 ML VIAL ONE (10:17)
[2021-05-06] MEDS ORDERED: BUPIVACAINE 0.25% PF 30 ML VIAL SUBQ ONE (10:23)
[2021-05-06] MEDS ORDERED: fentaNYL 100 MCG/2 ML VIAL IVP PRN (10:32)
[2021-05-06] MEDS ORDERED: HYDROmorphone 0.5 MG/0.5 ML SYRINGE IVP PRN (10:32)
[2021-05-06] MEDS ORDERED: ATROPINE ABBOJECT 1 MG/10 ML SYRINGE IVP PRN (10:32)
[2021-05-06] MEDS ORDERED: NALOXONE 0.4 MG/ML VIAL IVP PRN (10:32)
[2021-05-06] MEDS ORDERED: ePHEDrine 50 MG/ML VIAL IVP PRN (10:32)
[2021-05-06] MEDS ORDERED: ONDANSETRON 4 MG/2 ML VIAL IVP PRN ×2 (10:32→11:21)
[2021-05-06] MEDS ORDERED: MORPHINE 2 MG/ML CARPUJECT IVP PRN (10:32)
[2021-05-06] MEDS ORDERED: ONDANSETRON 4 MG/2 ML VIAL ONE ×2 (10:49→11:56)
[2021-05-06] MEDS ORDERED: KETOROLAC 30 MG/ML VIAL ONE (10:49)
[2021-05-06] MEDS ORDERED: SUGAMMADEX 200 MG/2 ML VIAL IVP ONE (10:50)
[2021-05-06] MEDS ORDERED: LACTATED RINGERS 1,000 ML IV SCH (11:00)
[2021-05-06] MEDS ORDERED: ACETAMINOPHEN 325 MG TABLET PO PRN (11:21)
[2021-05-06] MEDS ORDERED: SODIUM CHLORIDE FLUSH 0.9% 10 ML SYRINGE IVP PRN (11:21)
[2021-05-06] MEDS ORDERED: ONDANSETRON ODT 4 MG TABLET TL PRN (11:21)
[2021-05-06] MEDS ORDERED: ZOLPIDEM 5 MG TABLET PO PRN (11:21)
[2021-05-06] MEDS ORDERED: PROCHLORPERAZINE 10 MG/2 ML VIAL IVP PRN (11:21)
[2021-05-06] MEDS ORDERED: LACTATED RINGERS 1,000 ML IV ONE (11:27)
--- NOTE | 2021-05-06 11:30 | OPERATIVE REPORT ---
Operative Report - General Admit Date: 05/05/21 Procedure Date: 05/06/21 Planned Procedure: lap appendectomy Pre-Op Diagnosis: appendicitis with peritonitis Procedure Performed: lap appendectomy Post Op Diagnosis: appendicitis with peritonitis/ supurative - Procedure Note Primary Surgeon: tanya bonner Anesthesia Technique: General ET tube, Local Pathology: appendix Estimated Blood Loss (mL): 10 Drain/Tube Type: Other (none) Findings: as above Complications: none - Other Other Information/Narrative: The patient was properly identified brought to the operating room and placed in supine position. The patient was previously given antibiotics. Sequential compression devices were placed. General endotracheal anesthesia was induced. The patient was prepped and draped in a sterile fashion. Local anesthetic was given to incision areas. An infraumbilical incision was made in and proceeded down to the fascia. The fascia was incised lifted upwards and abdomen entered with a Veress needle. CO2 was insufflated to a pressure of 15. A 12 mm trocar was placed with 30 degree scope. There was no evidence of injury from Veress needle or trocar placement. Under direct vision a 5 mm trocar was placed suprapubic and a 5 mm trocar was placed in the right upper quadrant. Appendix was identified and retracted anteriorly. Peritoneal attachments were taken down with careful use of cautery. Appendix was mobilized more anterior. A plane was then created between the mesoappendix and the appendix at the cecum. Appendix was divided with an Endo HALLE intestinal load to include up a small portion of the cecum. The mesoappendix was then divided with an Endo HALLE vascular load. There was secure closure at the cecum and hemostasis was assured. The appendix was not brought out. The abdomen was thoroughly irrigated and hemostasis again assured. Trochars were removed under direct vision. Fascia at the infraumbilical site was closed with a running 0 Vicryl suture. Subcutaneous tissue was irrigated and skin reapproximated with buried interrupted 4-0 Monocryl. Dressings were applied. The patient tolerated the procedure well was awakened and brought to recovery in good condition.
[2021-05-06] MEDS ORDERED: INSULIN REGULAR HUMAN 300 UNIT/3 ML VIAL SUBQ SCH (12:00)
[2021-05-06] MEDS: D5.45NS W/20 MEQ KCL 1,000 ML IV SCH ×2 (13:57→18:38)
--- NOTE | 2021-05-06 14:01 | ANESTHESIA POST OP EVALUATION ---
Anesthesia Post Eval - Post Anesthesia Eval Vitals: Last Vital Signs Temp 36.5 C 05/06/21 12:55 Pulse 85 05/06/21 12:55 Resp 20 05/06/21 12:55 BP 123/58 L 05/06/21 12:55 Pulse Ox 98 05/06/21 12:55 CV Function Including HR & BP: Stable Pain Control: Satisfactory Nausea & Vomiting: Negative Mental Status: Baseline Respiratory Status: Airway Patent Hydration Status: Satisfactory Anesthesia Complications: None
[2021-05-06] MEDS: PIPERACILLIN/TAZOBACTAM 3.375 GM in SODIUM CHLORIDE 0.9% MINIBAG 100 ML IV SCH ×2 (14:12→17:24)
[2021-05-06] MEDS ORDERED: SUCRALFATE 1 GM/10 ML UDC PO SCH (16:00)
[2021-05-06] MEDS: INSULIN ASPART 300 UNIT/3 ML PEN SUBQ SCH ×2 (17:23→21:36)
[2021-05-06] MEDS ORDERED: ATORVASTATIN 10 MG TABLET PO SCH (21:00)
[2021-05-06] MEDS ORDERED: INSULIN GLARGINE 300 UNIT/3 ML PEN SUBQ SCH (21:00)
[2021-05-06] MEDS: HYDROcod/ACETAM 5/325 MG TABLET PO PRN (21:42)
[2021-05-07] MEDS: SODIUM CHLORIDE FLUSH 0.9% 10 ML SYRINGE IVP SCH ×2 (01:10→08:15)
[2021-05-07] MEDS: PIPERACILLIN/TAZOBACTAM 3.375 GM in SODIUM CHLORIDE 0.9% MINIBAG 100 ML IV SCH ×2 (01:15→05:25)
[2021-05-07] MEDS: HYDROcod/ACETAM 5/325 MG TABLET PO PRN ×2 (04:18→08:12)
[2021-05-07] MEDS: D5.45NS W/20 MEQ KCL 1,000 ML IV SCH (05:24)
[2021-05-07] MEDS: INSULIN ASPART 300 UNIT/3 ML PEN SUBQ SCH (07:40)
[2021-05-07 08:09] VITALS: BP 120/62
--- NOTE | 2021-05-07 09:18 | Discharge Plan ---
Discharge Plan Problem Reviewed?: Yes Disposition: Home, Self Care Condition: Good Prescriptions: HYDROcod/ACETAM 5/325 [[place] 5/325] 1 each PO Q6H PRN #30 tablet PRN Reason: Pain Ondansetron Odt [Zofran Odt] 4 mg PO Q6H PRN #15 tablet PRN Reason: Nausea / Vomiting Diet: Regular (diet as tolerated. light for several days recommended) Activity Restrictions: No Restrictions Shower Restrictions: No (may leave the dressings on for several days and get them wet) Driving Restrictions: No Plan of Treatment: surgery for appendicitis Assessment: doing well after appendectomy Additional Instructions or Follow Up instructions: call the surgery office for any concerns call the surgery office to make a follow up appointment with Dr Mao [phone] No Smoking: If you smoke, Please STOP! Call for help. Follow-up with: JESSICA BRIONES ARNP [Primary Care Provider] -
--- NOTE | 2021-05-07 09:20 | DISCHARGE SUMMARY ---
Discharge Summary Admit Date: 05/05/21 Discharge Date: 05/07/21 Discharging Provider: tanya bonner md Code Status: Attempt Resuscitation - DIAGNOSES Admission Diagnoses: appendicitis Discharge Diagnoses with Status of Each Condition: home in good condition - HPI History of Present Illness: abdominal pain and nausea. diagnosed appendicitis. surgery 05/06/2021 suppur ative appendicitis with brown fluid in abdomen. ileus present. additional antibiotics and ivf given - ALLERGIES Allergies/Adverse Reactions: Allergies Allergy/AdvReac Type Severity Reaction Status Date / Time Sulfa (Sulfonamide Allergy Intermediate welts Verified 05/05/21 19:46 Antibiotics) adhesive tape Allergy Hives Verified 05/05/21 19:46 - MEDICATIONS Home Medications: Ambulatory Orders Medication Instructions Recorded Confirmed Multivitamin [Multivitamins] 1 each PO DAILY 06/07/13 01/20/15 Atorvastatin Calcium 20 mg ORAL DAILY 02/20/21 02/20/21 Insulin Glargine [Lantus Solostar] 43 unit SUBQ QPM 02/20/21 02/20/21 Meloxicam [Mobic] 1 tablet PO DAILY 02/20/21 02/20/21 Metformin HCl [Metformin ER 1,000 mg ORAL BID 02/20/21 02/20/21 Gastric] Sucralfate [Carafate] 1 gm PO ACHS #60 tablet 02/20/21 lisinopriL [Prinivil] 5 mg PO DAILY 02/20/21 02/20/21 HYDROcod/ACETAM 5/325 [[place] 5/325] 1 each PO Q6H PRN #30 tablet 05/06/21 Ondansetron Odt [Zofran Odt] 4 mg PO Q6H PRN #15 tablet 05/06/21 - PHYSICAL EXAM AT DISCHARGE General Appearance: positive: Alert Eyes Bilateral: positive: PERRL, EOMI ENT: positive: No signs of dehydration Neck: positive: No JVD Respiratory: positive: No respiratory distress Abdomen: positive: Non-tender, No distention - LABS Result Diagrams: 05/05/21 20:36 05/05/21 20:14 - FOLLOW UP Follow Up: surgery office please call to make an appointment [phone]
[2021-05-08] MEDS ORDERED: metFORMIN 500 MG TABLET PO SCH (08:00)
== END 2021-05-07 10:47 | disposition home or self-care (01) ==
LOC: ED 19:37 → MS2 22:34
PROVIDERS: ADMIT Surgery; ATTEND Surgery
PROC: 0DTJ4ZZ Resection of Appendix, Percutaneous Endoscopic Approach (ICD-10-PCS; principal; 2021-05-05)
DX: K35.30 Acute appendicitis with localized peritonitis, without perforation or gangrene (principal); R50.82 Postprocedural fever; E11.9 Type 2 diabetes mellitus without complications; Z79.4 Long term (current) use of insulin; E66.9 Obesity, unspecified; Z68.33 Body mass index [BMI] 33.0-33.9, adult
CPT/HCPCS: 36415; 44970; 71046; 74177; 80048; 80053; 81001; 81025; 83605; 83690; 85025; 96365; 96366; 96367; 96372; 96375; 96376; 99284; 99285; A9270; G0378; J1170; J1815; J7120; Q0162; Q9967; 81003; 87086; 88304

== ENCOUNTER 2021-05-07 18:10 | Emergency (ER) | payer BC ==
[2021-05-07 19:49] LABS: BASOPHILS % (AUTO) 0.1 %; EOSINOPHILS # (AUTO) 0.2 10^3/uL (0.0-0.7); EOSINOPHILS % (AUTO) 1.2 %; HGB - HEMOGLOBIN 11.7 g/dL (12.0-16.0); LYMPHOCYTES # (AUTO) 1.3 10^3/uL (1.5-3.5); LYMPHOCYTES % (AUTO) 8.2 %; MEAN CORPUSCULAR HEMOGLOBIN 29.9 pg (27.0-31.0); MEAN CORPUSCULAR HGB CONC 33.4 g/dL (32.0-36.0); MEAN CORPUSCULAR VOLUME 89.5 fL (81.0-99.0); MEAN PLATELET VOLUME 10.7 fL (7.9-10.8); MONOCYTES # (AUTO) 0.6 10^3/uL (0.0-1.0); MONOCYTES % (AUTO) 4.2 %; NEUTROPHILS # (AUTO) 13.2 10^3/uL (1.5-6.6); NEUTROPHILS % (AUTO) 85.8 %; PLT - PLATELET COUNT 188 10^3/uL (130-450); RED BLOOD COUNT 3.91 10^6/uL (4.20-5.40); RED CELL DISTRIBUTION WIDTH 13.5 % (12.0-15.0); WHITE BLOOD COUNT 15.4 x10^3/uL (4.8-10.8)
[2021-05-07 20:12] LABS: CALCIUM 8.7 mg/dL (8.5-10.3); CREATININE 0.8 mg/dL (0.4-1.0); POTASSIUM 3.4 mmol/L (3.5-5.0)
--- NOTE | 2021-05-07 20:25 | ED Physician Documentation ---
PD HPI FEVER - Stated complaint Stated Complaint: FEVER/POST OP PX - Chief complaint Chief Complaint: Fever - History obtained from History obtained from: Patient - History of Present Illness Timing - onset: Today Timing details: Abrupt onset Pain level now: 3 Associated symptoms: Chills, Sweats. No: Dry cough, Productive cough, Dyspnea, NVD, Urinary symptoms Recently seen: Surgery - Additional information Additional information: patient had laparoscopic appendectomy yesterday, c/o fever Tmax 101.5 earlier today and came to ED as instructed. She says during the evening yesterday, while stile inpatient she had temperatures in the 99 range. The pain is no worse than it was earlier in the day. Review of Systems Constitutional: reports: Fever. denies: Chills, Sweats Nose: reports: Reviewed and negative Throat: denies: Sore throat Cardiac: reports: Reviewed and negative Respiratory: reports: Reviewed and negative GI: reports: Abdominal Pain. 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: LEEP (Cervical surgery), Tubal ligation - Present Medications Home Medications: Ambulatory Orders Medication Instructions Recorded Confirmed Multivitamin [Multivitamins] 1 each PO DAILY 06/07/13 01/20/15 Atorvastatin Calcium 20 mg ORAL DAILY 02/20/21 02/20/21 Insulin Glargine [Lantus Solostar] 43 unit SUBQ QPM 02/20/21 02/20/21 Meloxicam [Mobic] 1 tablet PO DAILY 02/20/21 02/20/21 Metformin HCl [Metformin ER 1,000 mg ORAL BID 02/20/21 02/20/21 Gastric] Sucralfate [Carafate] 1 gm PO ACHS #60 tablet 02/20/21 lisinopriL [Prinivil] 5 mg PO DAILY 02/20/21 02/20/21 HYDROcod/ACETAM 5/325 [[place] 5/325] 1 each PO Q6H PRN #30 tablet 05/06/21 Ondansetron Odt [Zofran Odt] 4 mg PO Q6H PRN #15 tablet 05/06/21 Amox/Clav 875/125 [Augmentin 1 tablet PO Q12H 5 Days #10 tablet 05/07/21 875/125 Tab] - Allergies Allergies/Adverse Reactions: Allergies Allergy/AdvReac Type Severity Reaction Status Date / Time Sulfa (Sulfonamide Allergy Intermediate welts Verified 05/07/21 18:20 Antibiotics) adhesive tape Allergy Hives Verified 05/07/21 18:20 - Social History Does the pt smoke?: Yes Smoking Status: Current every day smoker Does the pt drink ETOH?: No Does the pt have substance abuse?: No - Immunizations Immunizations are current?: No - POLST Patient has POLST: No PD ED PE NORMAL - Vitals Vital signs reviewed: Yes - General General: Alert and oriented X 3, No acute distress, Well developed/nourished - Neck Neck: Supple, no meningeal sign - Cardiac Cardiac: RRR, No murmur, No gallop, No rub - Respiratory Respiratory: No respiratory distress, Clear bilaterally - Abdomen Abdomen: Soft, Non tender, Non distended, Other (mild/moderate diffuse abdominal tenderness consistent with post-operative day 1 after appendectomy) - Derm Derm: Normal color, Warm and dry - Neuro Neuro: Alert and oriented X 3 Results - Vitals Vitals: Oxygen O2 Source Room air - Labs Labs: Laboratory Tests 05/07/21 05/07/21 05/07/21 19:43 19:43 19:43 WBC 15.4 H RBC 3.91 L Hgb 11.7 L Hct 35.0 L MCV 89.5 MCH 29.9 MCHC 33.4 RDW 13.5 Plt Count 188 MPV 10.7 Neut # (Auto) 13.2 H Lymph # (Auto) 1.3 L [place] # (Auto) 0.6 Eos # (Auto) 0.2 Baso # (Auto) 0.0 Absolute Nucleated RBC 0.00 Nucleated RBC % 0.0 Sodium 135 Potassium 3.4 L Chloride 99 L Carbon Dioxide 27 Anion Gap 9.0 BUN 7 Creatinine 0.8 Estimated GFR (MDRD) 78 L Glucose 129 H Lactic Acid 0.9 Calcium 8.7 Urine Color Urine Clarity Urine pH Ur Specific [place] Urine Protein Urine Glucose (UA) Urine Ketones Urine Occult Blood Urine Nitrite Urine Bilirubin Urine Urobilinogen Ur Leukocyte Esterase Urine RBC Urine WBC Ur Squamous Epith Cells Urine Bacteria Ur Microscopic Review Urine Culture Comments 05/07/21 21:02 WBC RBC Hgb Hct MCV MCH MCHC RDW Plt Count MPV Neut # (Auto) Lymph # (Auto) [place] # (Auto) Eos # (Auto) Baso # (Auto) Absolute Nucleated RBC Nucleated RBC % Sodium Potassium Chloride Carbon Dioxide Anion Gap BUN Creatinine Estimated GFR (MDRD) Glucose Lactic Acid Calcium Urine Color YELLOW Urine Clarity CLEAR Urine pH 6.0 Ur Specific [place] 1.020 Urine Protein 30 H Urine Glucose (UA) NEGATIVE Urine Ketones TRACE Urine Occult Blood LARGE H Urine Nitrite NEGATIVE Urine Bilirubin NEGATIVE Urine Urobilinogen 1 (NORMAL) Ur Leukocyte Esterase NEGATIVE Urine RBC 6-10 H Urine WBC 0-3 Ur Squamous Epith Cells RARE Squamous Urine Bacteria None Seen Ur Microscopic Review INDICATED Urine Culture Comments NOT INDICATED PD MEDICAL DECISION MAKING - ED course Complexity details: reviewed results, re-evaluated patient, considered differential, d/w patient ED course: mild leukocytosis (WBC 15), normal lactate. Unremarkable UA (blood only). CXR is clear and no respiratory c/o. No source for the fever. D/W Dr. Palomares, recommends d/c with f/u in office tomorrow for reevaluation; she also recommends initiating antibiotic broad spectrum coverage such as augmentin (dose given and rx for same). Departure - Departure Disposition: 01 Home, Self Care Clinical Impression: Postoperative fever Condition: Good Instructions: ED Fever Unconf Cause Follow-Up: Alessandro Mao MD [Provider Admit Priv/Credential] - (Call in the morning to arrange for appointment for reevaluation within 48 hours) Prescriptions: Amox/Clav 875/125 [Augmentin 875/125 Tab] 1 tablet PO Q12H 5 Days #10 tablet Forms: Activity restrictions Discharge Date/Time: 05/07/21 22:41
[2021-05-07] MEDS ORDERED: HYDROmorphone 1 MG/ML CARPUJECT IM STA (20:45)
[2021-05-07 21:09] LABS: BILIRUBIN,URINE NEGATIVE (NEGATIVE); GLUCOSE, URINE (UA) NEGATIVE (NEGATIVE); KETONES,URINE (UA) TRACE mg/dL (NEGATIVE); LEUKOCYTE ESTERASE, URINE NEGATIVE (NEGATIVE); NITRITE,URINE NEGATIVE (NEGATIVE); OCCULT BLOOD,URINE LARGE (NEGATIVE); PROTEIN,URINE 30 mg/dL (NEGATIVE); UROBILINOGEN,URINE 1 (NORMAL) E.U./dL (NORMAL)
[2021-05-07 21:10] LABS: CLARITY,URINE CLEAR (CLEAR)
[2021-05-07 21:18] LABS: BACTERIA,URINE None Seen /HPF (None Seen); SQUAMOUS EPITHELIAL CELL,UR RARE Squamous (<= Few); WBC,URINE 0-3 /HPF (0-5)
--- NOTE | 2021-05-07 21:39 | XRAY Report ---
PROCEDURE: Chest 2 View X-Ray INDICATIONS: post-operative fever, cough TECHNIQUE: 2 view(s) of the chest. COMPARISON: None. FINDINGS: Surgical changes and devices: None. Lungs and pleura: No pleural effusions or pneumothorax. Lungs are clear. Mediastinum: Mediastinal contours are normal. Heart size is normal. Bones and chest wall: No suspicious bony abnormalities. Soft tissues appear unremarkable. IMPRESSION: Normal for age, source of current symptoms is not seen. Reviewed by: Delfino Salgado MD on 05/07/2021 9:38 PM PDT Approved by: Delfino Salgado MD on 05/07/2021 9:38 PM PDT Station ID: [id number]
[2021-05-07] MEDS ORDERED: HYDROcod/ACETAM 5/325 MG TABLET PO STA (22:27)
[2021-05-07] MEDS ORDERED: AMOX/CLAV 875 MG/125 MG TABLET PO STA (22:27)
[2021-05-07 22:43] VITALS: BP 146/85
== END 2021-05-07 22:41 | disposition home or self-care (01) ==
LOC: ED 18:10
DX: R50.82 Postprocedural fever (principal); E11.9 Type 2 diabetes mellitus without complications; Z79.4 Long term (current) use of insulin; F17.200 Nicotine dependence, unspecified, uncomplicated
CPT/HCPCS: 36415; 71046; 80048; 81001; 83605; 85025; 96372; 99284; A9270; J1170; 81003; 87086

== ENCOUNTER 2021-05-29 10:23 | Outpatient (CLI) | payer BC ==
[2021-05-29 20:39] LABS: ESTIMATED AVERAGE GLUCOSE 163 mg/dL (70-100); HEMOGLOBIN A1c% 7.3 % (4.27-6.07)
== END 2021-05-29 10:24 | disposition home or self-care (01) ==
LOC: LAB.S 10:23
PROVIDERS: ATTEND Nurse Practitioner Family
DX: E11.9 Type 2 diabetes mellitus without complications (principal)
CPT/HCPCS: 36415; 83036

== ENCOUNTER 2021-10-15 10:48 | Outpatient (CLI) | payer BC ==
[2021-10-15 14:20] LABS: BASOPHILS # (AUTO) 0.1 10^3/uL (0.0-0.1); BASOPHILS % (AUTO) 0.5 %; EOSINOPHILS # (AUTO) 0.2 10^3/uL (0.0-0.7); EOSINOPHILS % (AUTO) 1.8 %; HCT - HEMATOCRIT 46.6 % (37.0-47.0); HGB - HEMOGLOBIN 14.7 g/dL (12.0-16.0); LYMPHOCYTES # (AUTO) 4.2 10^3/uL (1.5-3.5); LYMPHOCYTES % (AUTO) 39.5 %; MEAN CORPUSCULAR HEMOGLOBIN 28.9 pg (27.0-31.0); MEAN CORPUSCULAR HGB CONC 31.5 g/dL (32.0-36.0); MEAN CORPUSCULAR VOLUME 91.7 fL (81.0-99.0); MEAN PLATELET VOLUME 10.5 fL (7.9-10.8); MONOCYTES # (AUTO) 0.7 10^3/uL (0.0-1.0); MONOCYTES % (AUTO) 6.4 %; NEUTROPHILS # (AUTO) 5.5 10^3/uL (1.5-6.6); NEUTROPHILS % (AUTO) 51.5 %; PLT - PLATELET COUNT 202 10^3/uL (130-450); RED BLOOD COUNT 5.08 10^6/uL (4.20-5.40); RED CELL DISTRIBUTION WIDTH 13.4 % (12.0-15.0); WHITE BLOOD COUNT 10.6 x10^3/uL (4.8-10.8)
[2021-10-15 14:47] LABS: ALBUMIN 4.8 g/dL (3.2-5.5); ALBUMIN/GLOBULIN RATIO 1.5 (1.0-2.2); ALKALINE PHOSPHATASE 61 IU/L (42-121); ALT ALANINE AMINOTRANSFERASE 58 IU/L (10-60); AST ASPARTATE AMINOTRANSFERASE 34 IU/L (10-42); BILIRUBIN,TOTAL 0.8 mg/dL (0.2-1.0); BUN - BLOOD UREA NITROGEN 22 mg/dL (6-20); CALCIUM 9.6 mg/dL (8.5-10.3); CARBON DIOXIDE - CO2 28 mmol/L (21-32); CHLORIDE 101 mmol/L (101-111); CHOL/HDL RATIO 3.2 (<4.4); CHOLESTEROL 128 mg/dL; CREATININE 0.8 mg/dL (0.4-1.0); GFR - MDRD 78 (>89); GLUCOSE 111 mg/dL (70-100); HDL CHOLESTEROL 40 mg/dL; LDL CHOLESTEROL,CALCULATED 38 mg/dL; POTASSIUM 4.5 mmol/L (3.5-5.0); SODIUM 138 mmol/L (135-145); TOTAL PROTEIN 7.9 g/dL (6.7-8.2); TRIGLYCERIDES 248 mg/dL; VLDL CHOLESTEROL 50 mg/dL
[2021-10-15 15:46] LABS: CREATININE,URINE 245.9 mg/dL; MICROALBUM/CREATININE RATIO,UR 96.4 ug/mg (<30.0); MICROALBUMIN,URINE 23.7 mg/dL (0-300.0)
[2021-10-15 19:44] LABS: ESTIMATED AVERAGE GLUCOSE 166 mg/dL (70-100); HEMOGLOBIN A1c% 7.4 % (4.27-6.07)
== END 2021-10-15 10:49 | disposition home or self-care (01) ==
LOC: LAB.S 10:48
PROVIDERS: ATTEND Nurse Practitioner Family
DX: E11.8 Type 2 diabetes mellitus with unspecified complications (principal); E78.2 Mixed hyperlipidemia; I10 Essential (primary) hypertension
CPT/HCPCS: 36415; 80053; 80061; 82043; 82570; 83036; 83721; 84443; 85025

== ENCOUNTER 2021-10-19 09:23 | Emergency (ER) | payer OTHER, BC ==
--- NOTE | 2021-10-19 09:57 | ED Physician Documentation ---
PD HPI UPPER EXT INJURY - Stated complaint Stated Complaint: R SHOULDER,ARM PX - Chief complaint Chief Complaint: Ext Problem - History obtained from History obtained from: Patient - History of Present Illness Location: Right, Shoulder Type of injury: Other (lifting). No: Fall, Twist Where injury occurred: Work Timing - onset: How many days ago (few) Timing - duration: Days Timing - details: Gradual onset, Still present Worsened by: Moving Associated symptoms: No: Weakness, Numbness, Swelling Similar symptoms before: Diagnosis (had shoulder surgery Fe for rotator cuff and has been light duty since. 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 : None HEENT: None Psych: None Musculoskeletal: None, Osteoarthritis Derm: None - Past Surgical History Past Surgical History: Yes General: Appendectomy Ortho: Rotator cuff repair /UPPER LINING CEMENTER: LEEP (Cervical surgery), Tubal ligation - Present Medications Home Medications: Ambulatory Orders Medication Instructions Recorded Confirmed Multivitamin [Multivitamins] 1 each PO DAILY 06/07/13 01/20/15 Atorvastatin Calcium 20 mg ORAL DAILY 02/20/21 02/20/21 Insulin Glargine [Lantus Solostar] 43 unit SUBQ QPM 02/20/21 02/20/21 Meloxicam [Mobic] 1 tablet PO DAILY 02/20/21 02/20/21 Metformin HCl [Metformin ER 1,000 mg ORAL BID 02/20/21 02/20/21 Gastric] Sucralfate [Carafate] 1 gm PO ACHS #60 tablet 02/20/21 lisinopriL [Prinivil] 5 mg PO DAILY 02/20/21 02/20/21 HYDROcod/ACETAM 5/325 [Edison 5/325] 1 each PO Q6H PRN #30 tablet 05/06/21 Ondansetron Odt [Zofran Odt] 4 mg PO Q6H PRN #15 tablet 05/06/21 Amox/Clav 875/125 [Augmentin 1 tablet PO Q12H 5 Days #10 tablet 05/07/21 875/125 Tab] oxyCODONE [Roxicodone] 5 mg PO Q6H PRN #20 tablet 10/19/21 - Allergies Allergies/Adverse Reactions: Allergies Allergy/AdvReac Type Severity Reaction Status Date / Time Sulfa (Sulfonamide Allergy Intermediate welts Verified 10/19/21 09:32 Antibiotics) adhesive tape Allergy Hives Verified 10/19/21 09:32 - Social History Does the pt smoke?: Yes Smoking Status: Current every day smoker Does the pt drink ETOH?: No Does the pt have substance abuse?: No - Immunizations Immunizations are current?: No - POLST Patient has POLST: No PD ED PE NORMAL - Vitals Vital signs reviewed: Yes - General General: Alert and oriented X 3, Well developed/nourished, Other (appears in discomfort and guarding ROM of the left shoulder. ) - Derm Derm: Normal color, Warm and dry, No rash - Extremities Extremities: Other (right shoulder tender anteriorly to touch. No redness nor sores. Not warm. Prior small scars without signs of infections. ) - Neuro Neuro: Alert and oriented X 3, No motor deficit, No sensory deficit, Normal speech Results - Vitals Vitals: Oxygen O2 Source Room air - Rads (name of study) right shoulder Radiology: Prelim report reviewed (unremarkable right shoulder radiographs. ), See rad report PD MEDICAL DECISION MAKING - ED course Complexity details: considered differential (presumed inflammation of shoulder tendons. I did injection anterior tendon area at tender area with kenalog and ropivicaine. ), d/w patient Departure - Departure Disposition: 01 Home, Self Care Clinical Impression: Shoulder pain Qualifiers: Chronicity: acute Laterality: right Qualified Code(s): M25.511 - Pain in right shoulder Right shoulder strain Qualifiers: Encounter type: initial encounter Qualified Code(s): S46.911A - Strain of unspecified muscle, fascia and tendon at shoulder and upper arm level, right arm, initial encounter Condition: Stable Record reviewed to determine appropriate education?: Yes Follow-Up: Akshat Ballesteros MD [Primary Care Provider] - Prescriptions: oxyCODONE [Roxicodone] 5 mg PO Q6H PRN #20 tablet PRN Reason: Pain Comments: Use the sling for reduced motion and activity of the shoulder presuming some inflammation. It could be that you stretch some of the scar tissue or has some inflammation of the rotator cuff again. Gentle range of motion of the shoulder several times daily to reduce stiffness. Continue your current meloxicam. Use Tylenol 500 mg 4 times a day regularly for the next several days to week. To that add oxycodone every 6 hours if needed for worse pain. Contact your orthopedic office as you have and arrange a follow-up appointment with them. I understand this is in progress. I transmitted your prescriptions to your pharmacy. I am prescribing a short course of narcotic pain medication for you. These are potentially dangerous and addictive medications that should be used carefully. These medications may constipate you. Take an cskx-afk-buwdkbb stool softener such as docusate twice daily with plenty of water while taking these medications. If you go 24 hours without a bowel movement, take itps-qht-fizkdct MiraLAX, per package instructions. Do not drink or drive while taking these medications. If you received narcotic or sedating medications while in the emergency department do not drive for 24 hours. Store this medication in a safe, secure place and out of reach of children. It is a violation of federal law to give or sell this medication to another person or to use in a manner other than prescribed. The ED will not refill narcotic prescriptions, including prescriptions lost or stolen. You can dispose of unwanted medications at the [facility]'s office or at several pharmacies such as [facility]. Forms: Activity restrictions Discharge Date/Time: 10/19/21 11:29
[2021-10-19] MEDS ORDERED: TRIAMCINOLONE 40 MG/ML VIAL IM STA (10:17)
[2021-10-19] MEDS ORDERED: oxyCODONE 5 MG TABLET PO STA (10:17)
[2021-10-19] MEDS ORDERED: ROPIVACAINE 0.5% PF 30 ML VIAL SUBQ STA (10:19)
--- NOTE | 2021-10-19 10:59 | XRAY Report ---
PROCEDURE: Shoulder 3 View RT INDICATIONS: increased pain over baseline; s/p shoulder surgery TECHNIQUE: 3 views of the shoulder were acquired. COMPARISON: None. FINDINGS: Bones: Normal joint alignment. Joint space is maintained. No significant degenerative changes. No sharif spicious lytic or blastic osseous lesion. No fracture. Soft tissues: No suspicious soft tissue calcifications. IMPRESSION: Unremarkable right shoulder radiographs. Reviewed by: Atif Davidson MD on 10/19/2021 10:58 AM [facility] Approved by: Atif Davidson MD on 10/19/2021 10:58 AM [facility] Station ID: [id number]
[2021-10-19] MEDS ORDERED: ROPIVACAINE 0.5% PF 20 ML AMPULE IU ONE (11:00)
[2021-10-19 11:23] VITALS: BP 153/73
== END 2021-10-19 11:29 | disposition home or self-care (01) ==
LOC: ED 09:23
DX: S46.911A Strain of unspecified muscle, fascia and tendon at shoulder and upper arm level, right arm, initial encounter (principal); X50.0XXA Overexertion from strenuous movement or load, initial encounter; Y99.0 Civilian activity done for income or pay; M77.8 Other enthesopathies, not elsewhere classified; E11.9 Type 2 diabetes mellitus without complications; Z79.4 Long term (current) use of insulin; Z79.84 Long term (current) use of oral hypoglycemic drugs; F17.200 Nicotine dependence, unspecified, uncomplicated
CPT/HCPCS: 20550; 73030; 96372; 99283; A9270

== ENCOUNTER 2022-02-20 09:09 | Outpatient (CLI) | payer BC | END 2022-02-20 09:10 | disposition home or self-care (01) | LOC: LAB.S 09:09 | PROVIDERS: ATTEND Nurse Practitioner Family | DX: E11.8 Type 2 diabetes mellitus with unspecified complications (principal) | CPT/HCPCS: 36415; 81599; 83036 ==

== ENCOUNTER 2022-03-12 09:04 | Emergency (ER) | payer BC ==
[2022-03-12 09:42] LABS: BILIRUBIN,URINE NEGATIVE (NEGATIVE); GLUCOSE, URINE (UA) NEGATIVE (NEGATIVE); KETONES,URINE (UA) TRACE mg/dL (NEGATIVE); LEUKOCYTE ESTERASE, URINE NEGATIVE (NEGATIVE); NITRITE,URINE NEGATIVE (NEGATIVE); OCCULT BLOOD,URINE NEGATIVE (NEGATIVE); PROTEIN,URINE TRACE mg/dL (NEGATIVE); UROBILINOGEN,URINE 0.2 (NORMAL) E.U./dL (NORMAL)
[2022-03-12 09:45] LABS: CLARITY,URINE CLEAR (CLEAR); HCG UR QUAL NEGATIVE
--- NOTE | 2022-03-12 09:53 | ED Physician Documentation ---
PD HPI NVD - Stated complaint Stated Complaint: FEVER/DIRRHEA - Chief complaint Chief Complaint: Abd Pain - History obtained from History obtained from: Patient - History of Present Illness Timing - onset: How many days ago (4-5) Timing - duration: Days (4-5) Timing - details: Gradual onset, Still present Associated symptoms: Abdominal pain (crampy left sided pains.), Hematochezia (mostly watery/very loose without blood initially, but had some red blood after BM yesterday.), Loss of appetite. No: Fever, Chest pain, Near syncope / syncope Contributing factors: No: Sick contact, Bad food, Recent antibiotics Improved by: No: Eating Worsened by: Eating. No: Breathing, Position Similar symptoms before: No diagnosis (has had some frequent diarrhea and cramps in the past, with EGD and colonoscpy in recent past without positive findings.) Recently seen: Surgery (right shoulder surgery Fe with lidocaine injection last week due to pain of it with increasing ROM/use.) Review of Systems Constitutional: denies: Fever, Chills Nose: denies: Rhinorrhea / runny nose, Congestion Throat: denies: Sore throat Respiratory: denies: Cough GI: reports: Abdominal Pain, Nausea, Diarrhea, Bloody / black stool. denies: Vomiting, Hematemesis : denies: Dysuria, Frequency Neurologic: reports: Generalized weakness. denies: Near syncope PD PAST MEDICAL HISTORY - Past Medical History Cardiovascular: None Respiratory: None Neuro: None Endocrine/Autoimmune: Type 2 diabetes GI: None, Other (recurrent abd cramps and diarrhea without Dx. 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 : None HEENT: None Psych: None Musculoskeletal: None, Osteoarthritis Derm: None - Past Surgical History Past Surgical History: Yes General: Appendectomy Ortho: Rotator cuff repair /MEDIA PRODUCER: LEEP (Cervical surgery), Tubal ligation - Present Medications Home Medications: Ambulatory Orders Medication Instructions Recorded Confirmed Atorvastatin Calcium 20 mg ORAL DAILY 02/20/21 03/12/22 Insulin Glargine [Lantus Solostar] 43 unit SUBQ QPM 02/20/21 03/12/22 Meloxicam [Mobic] 1 tablet PO DAILY 02/20/21 03/12/22 Metformin HCl [Metformin ER 1,000 mg ORAL BID 02/20/21 03/12/22 Gastric] lisinopriL [Prinivil] 5 mg PO DAILY 02/20/21 03/12/22 Ondansetron Odt [Zofran Odt] 4 mg PO Q6H PRN #15 tablet 05/06/21 03/12/22 Aspirin EC [Ecotrin] 81 mg PO DAILY 03/12/22 03/12/22 DULoxetine [Cymbalta] 60 mg PO DAILY 03/12/22 03/12/22 Dulaglutide [Trulicity] 1 mg SQ Q7D 03/12/22 03/12/22 Famotidine [Acid-Pep] 20 mg PO BID 03/12/22 03/12/22 HYDROcod/ACETAM 5/325 [Burns 5/325] 1 ea PO Q6H PRN #15 tablet 03/12/22 Loperamide [Imodium] 2 mg PO QID PRN #16 cap 03/12/22 Naproxen 250 mg PO TID 7 Days #15 tablet 03/12/22 Ondansetron Odt [Zofran] 4 mg TL Q6H PRN #15 tablet 03/12/22 - Allergies Allergies/Adverse Reactions: Allergies Allergy/AdvReac Type Severity Reaction Status Date / Time Sulfa (Sulfonamide Allergy Intermediate welts Verified 03/12/22 09:15 Antibiotics) adhesive tape Allergy Hives Verified 03/12/22 09:15 - Social History Does the pt smoke?: Yes Smoking Status: Current every day smoker Does the pt drink ETOH?: No Does the pt have substance abuse?: No - Immunizations Immunizations are current?: No - POLST Patient has POLST: No PD ED PE NORMAL - Vitals Vital signs reviewed: Yes - General General: Alert and oriented X 3, Well developed/nourished, Other (appears uncomfortable with knees drawn up and holding emesis bag. ) - HEENT HEENT: Pharynx benign - Neck Neck: Supple, no meningeal sign, No adenopathy - Cardiac Cardiac: RRR, No murmur - Respiratory Respiratory: No respiratory distress, Clear bilaterally - Abdomen Abdomen: Normal bowel sounds, Soft, Non distended, No organomegaly - Female Female : Deferred - Rectal Rectal: Deferred - Back Back: No CVA TTP - Derm Derm: Normal color, Warm and dry - Extremities Extremities: No edema, No calf tenderness / cord, Other (right shoulder with limited ROM but no signs of skin infection. ) - Neuro Neuro: Alert and oriented X 3, No motor deficit, No sensory deficit Results - Vitals Vitals: Vital Signs - 24 hr 03/12/22 03/12/22 03/12/22 09:17 12:18 12:47 Temperature 98.4 C H 36.6 C 36.6 C Heart Rate 96 75 80 Respiratory 20 16 14 Rate Blood Pressure 156/75 H 120/66 116/78 O2 Saturation 100 100 97 03/12/22 12:54 Temperature 36.9 C Heart Rate 80 Respiratory 14 Rate Blood Pressure O2 Saturation 99 Oxygen O2 Source Room air - Labs Labs: Laboratory Tests 03/12/22 03/12/22 03/12/22 09:35 09:40 09:40 WBC 11.6 H RBC 4.85 Hgb 14.8 Hct 44.1 MCV 90.9 MCH 30.5 MCHC 33.6 RDW 13.1 Plt Count 245 MPV 10.0 Neut # (Auto) 7.5 H Lymph # (Auto) 3.1 [place] # (Auto) 0.8 Eos # (Auto) 0.2 Baso # (Auto) 0.0 Absolute Nucleated RBC 0.00 Nucleated RBC % 0.0 Sodium 133 L Potassium 4.0 Chloride 101 Carbon Dioxide 21 Anion Gap 11.0 BUN 13 Creatinine 0.8 Estimated GFR (MDRD) 78 L Glucose 176 H Calcium 9.5 Total Bilirubin 0.5 AST 25 ALT 30 Alkaline Phosphatase 53 Total Protein 7.7 Albumin 4.5 Globulin 3.2 Albumin/Globulin Ratio 1.4 Lipase 74 H Urine Color YELLOW Urine Clarity CLEAR Urine pH 5.0 Ur Specific [place] >=1.030 H Urine Protein TRACE Urine Glucose (UA) NEGATIVE Urine Ketones TRACE Urine Occult Blood NEGATIVE Urine Nitrite NEGATIVE Urine Bilirubin NEGATIVE Urine Urobilinogen 0.2 (NORMAL) Ur Leukocyte Esterase NEGATIVE Ur Microscopic Review NOT INDICATED Urine Culture Comments NOT INDICATED Urine HCG, Qual NEGATIVE - Rads (name of study) abd/pelvic CT Radiology: Prelim report reviewed (thickened colon wall c/w colitis. No free fluid. ), See rad report PD MEDICAL DECISION MAKING - ED course Complexity details: reviewed results (CT abd showing area of colitis, but still likely to be viral. Prior colonoscopies did not find IBD. COnsider bacterial and could get stool studies if persists (unable to have BM here right now). Sent with stool collection material. ), re-evaluated patient (improved symptoms and feeling okay after fluids/meds. Able to take fluids PO. ), considered differential, d/w patient Departure - Departure Disposition: 01 Home, Self Care Clinical Impression: Nausea vomiting and diarrhea, Colitis Abdominal pain Qualifiers: Abdominal location: left upper quadrant Qualified Code(s): R10.12 - Left upper quadrant pain Condition: Stable Record reviewed to determine appropriate education?: Yes Follow-Up: Karlene Cota ARNP [Primary Care Provider] - Prescriptions: Loperamide [Imodium] 2 mg PO QID PRN #16 cap PRN Reason: Diarrhea Naproxen 250 mg PO TID 7 Days #15 tablet HYDROcod/ACETAM 5/325 [Burns 5/325] 1 ea PO Q6H PRN #15 tablet PRN Reason: Pain Ondansetron Odt [Zofran] 4 mg TL Q6H PRN #15 tablet PRN Reason: Nausea / Vomiting Comments: Your CT scan does show some inflammation in the colon/lower intestine. This can relate to viral type illness or inflammatory process. It does not seem as likely to be bacterial infectious although that would require stool culture or testing to really evaluate for conditions such as E. coli/C. difficile/Salmonella etc. We would want to do this testing of the stool if symptoms persist. This may be a viral condition that will improve over the next couple of days. I would suggest trying ondansetron for nausea with small frequent fluids and bland diet. Add Imodium if needed for diarrhea. An anti-inflammatory would help with some of the inflammation of the colon wall. Add pain medicine if needed for worse pain. I sent prescriptions of these 2 [facility] in [place]. If you have persistent diarrhea symptoms and not improving, then obtain a sample of your diarrhea and bring to your primary care for evaluation. Follow-up with your primary care or back to the ER if not resolving well over the next few days. I am prescribing a short course of narcotic pain medication for you. These are potentially dangerous and addictive medications that should be used carefully. These medications may constipate you. Take an tnja-ncr-kpvwocx stool softener such as docusate twice daily with plenty of water while taking these medications. If you go 24 hours without a bowel movement, take wnqv-qhw-pxgiakf MiraLAX, per package instructions. Do not drink or drive while taking these medications. If you received narcotic or sedating medications while in the emergency department do not drive for 24 hours. Store this medication in a safe, secure place and out of reach of children. It is a violation of federal law to give or sell this medication to another person or to use in a manner other than prescribed. The ED will not refill narcotic prescriptions, including prescriptions lost or stolen. You can dispose of unwanted medications at the [facility]'s office or at several pharmacies such as [employer] [employer] Forms: Activity restrictions Discharge Date/Time: 03/12/22 12:54
[2022-03-12 09:54] LABS: BASOPHILS % (AUTO) 0.3 %; EOSINOPHILS # (AUTO) 0.2 10^3/uL (0.0-0.7); EOSINOPHILS % (AUTO) 1.4 %; HCT - HEMATOCRIT 44.1 % (37.0-47.0); HGB - HEMOGLOBIN 14.8 g/dL (12.0-16.0); LYMPHOCYTES # (AUTO) 3.1 10^3/uL (1.5-3.5); LYMPHOCYTES % (AUTO) 26.8 %; MEAN CORPUSCULAR HEMOGLOBIN 30.5 pg (27.0-31.0); MEAN CORPUSCULAR HGB CONC 33.6 g/dL (32.0-36.0); MEAN CORPUSCULAR VOLUME 90.9 fL (81.0-99.0); MONOCYTES # (AUTO) 0.8 10^3/uL (0.0-1.0); MONOCYTES % (AUTO) 6.6 %; NEUTROPHILS # (AUTO) 7.5 10^3/uL (1.5-6.6); NEUTROPHILS % (AUTO) 64.6 %; PLT - PLATELET COUNT 245 10^3/uL (130-450); RED BLOOD COUNT 4.85 10^6/uL (4.20-5.40); RED CELL DISTRIBUTION WIDTH 13.1 % (12.0-15.0); WHITE BLOOD COUNT 11.6 x10^3/uL (4.8-10.8)
[2022-03-12 10:10] LABS: ALBUMIN 4.5 g/dL (3.2-5.5); ALBUMIN/GLOBULIN RATIO 1.4 (1.0-2.2); BILIRUBIN,TOTAL 0.5 mg/dL (0.2-1.0); CALCIUM 9.5 mg/dL (8.5-10.3); CREATININE 0.8 mg/dL (0.4-1.0); TOTAL PROTEIN 7.7 g/dL (6.7-8.2)
[2022-03-12] MEDS ORDERED: SODIUM CHLORIDE 0.9% 1,000 ML IV STA ×2 (10:10→10:58)
[2022-03-12] MEDS ORDERED: DROPERIDOL 5 MG/2 ML VIAL IVP STA (10:11)
[2022-03-12] MEDS ORDERED: KETOROLAC 15 MG/ML VIAL IVP STA (10:11)
[2022-03-12] MEDS ORDERED: HYDROmorphone 1 MG/ML CARPUJECT IVP STA (10:12)
[2022-03-12] MEDS ORDERED: IOPAMIDOL-300 100 ML VIAL ONE (10:25)
[2022-03-12] MEDS ORDERED: IOPAMIDOL-300 100 ML VIAL IVP ONE (10:41)
--- NOTE | 2022-03-12 11:40 | CT Report ---
PROCEDURE: Abdomen/Pelvis W INDICATIONS: left abd pain 5 days; diarrhea CONTRAST: IV CONTRAST: Isovue 300 ml: 100 PO CONTRAST: *NO PO CONTRAST TECHNIQUE: After the administration of IV contrast, 5 mm thick sections acquired from the diaphragms to the symp hysis. 5 mm thick coronal and sagittal reformats were acquired. For radiation dose reduction, the f ollowing was used: automated exposure control, adjustment of mA and/or kV according to patient size. COMPARISON: CT abdomen and pelvis with contrast, 05/05/2021. FINDINGS: Image quality: Excellent. ABDOMEN: Lung bases: There is a 0.5 cm subpleural nodule in the left lung base, most likely round atelectasis . Lung bases are otherwise clear. Heart size is normal. Tiny hiatal hernia. Solid organs: Liver is prominent in size. Mild hepatic steatosis. Spleen are normal in size and enha ncement. Gallbladder is normal. Biliary system is non dilated. Pancreas enhances normally. No adr enal nodules. Kidneys demonstrate normal size and enhancement, without hydronephrosis. There is a 1 .6 cm cyst in right kidney. Peritoneum and bowel: There is mild diffuse colonic wall thickening moving descending, transverse, d escending and sigmoid colon, consistent with mild colitis. Bowel loops demonstrate normal caliber. Ap pendix is surgically absent. No free fluid or air. Nodes and vessels: No retroperitoneal or mesenteric adenopathy by size criteria. Aorta and inferior vena cava are normal in size. Miscellaneous: No ventral hernias. PELVIS: Genitourinary: Uterus is grossly normal. Right ovary is enlarged measuring 3.7 x 4.1 cm containing a 3 cm cyst. Surgical clips in the adnexa bilaterally are probably related to tubal ligations. Left ov serena is unremarkable. No free fluid in the cul-de-sac. Bladder wall thickness is normal. Miscellaneous: No inguinal hernias or adenopathy. Bones: No suspicious bony lesions. No vertebral body compression fractures. IMPRESSION: 1. Mild diffuse colonic wall thickening consistent with mild colitis. 2. A 3 cm cyst in the right ovary which is mildly enlarged. Recommend pelvic ultrasound follow-up. 3. Mild hepatomegaly and hepatic steatosis. Reviewed by: Britni Meehan MD on 03/12/2022 10:39 AM [facility] Approved by: Britni Meehan MD on 03/12/2022 10:39 AM [facility] Station ID: [id number]
[2022-03-12 12:49] VITALS: BP 116/78
== END 2022-03-12 12:54 | disposition home or self-care (01) ==
LOC: ED 09:04
DX: K52.9 Noninfective gastroenteritis and colitis, unspecified (principal); R10.12 Left upper quadrant pain; E11.9 Type 2 diabetes mellitus without complications; Z79.4 Long term (current) use of insulin; F17.200 Nicotine dependence, unspecified, uncomplicated
CPT/HCPCS: 36415; 74177; 80053; 81003; 81025; 83690; 85025; 96361; 96374; 96375; 99284; J1170; Q9967; 81001; 87086

== ENCOUNTER 2022-09-04 12:07 | Outpatient (CLI) | payer BC ==
[2022-09-04 15:01] LABS: BASOPHILS % (AUTO) 0.3 %; EOSINOPHILS # (AUTO) 0.2 10^3/uL (0.0-0.7); EOSINOPHILS % (AUTO) 1.8 %; HGB - HEMOGLOBIN 14.2 g/dL (12.0-16.0); LYMPHOCYTES # (AUTO) 3.7 10^3/uL (1.5-3.5); LYMPHOCYTES % (AUTO) 35.6 %; MEAN CORPUSCULAR HEMOGLOBIN 29.1 pg (27.0-31.0); MEAN CORPUSCULAR HGB CONC 31.6 g/dL (32.0-36.0); MEAN CORPUSCULAR VOLUME 92.2 fL (81.0-99.0); MEAN PLATELET VOLUME 10.3 fL (7.9-10.8); MONOCYTES # (AUTO) 0.6 10^3/uL (0.0-1.0); NEUTROPHILS # (AUTO) 5.9 10^3/uL (1.5-6.6); NEUTROPHILS % (AUTO) 55.9 %; PLT - PLATELET COUNT 168 10^3/uL (130-450); RED BLOOD COUNT 4.88 10^6/uL (4.20-5.40); WHITE BLOOD COUNT 10.5 x10^3/uL (4.8-10.8)
[2022-09-04 15:29] LABS: ALBUMIN 4.7 g/dL (3.2-5.5); ALBUMIN/GLOBULIN RATIO 1.5 (1.0-2.2); ALKALINE PHOSPHATASE 63 IU/L (42-121); ALT ALANINE AMINOTRANSFERASE 29 IU/L (10-60); AST ASPARTATE AMINOTRANSFERASE 25 IU/L (10-42); BILIRUBIN,TOTAL 0.6 mg/dL (0.2-1.0); BUN - BLOOD UREA NITROGEN 17 mg/dL (6-20); CALCIUM 9.7 mg/dL (8.5-10.3); CARBON DIOXIDE - CO2 29 mmol/L (21-32); CHLORIDE 102 mmol/L (101-111); CHOL/HDL RATIO 3.9 (<4.4); CHOLESTEROL 175 mg/dL; CREATININE 0.8 mg/dL (0.4-1.0); GFR - MDRD 78 (>89); GLUCOSE 126 mg/dL (70-100); HDL CHOLESTEROL 45 mg/dL; LDL CHOLESTEROL,CALCULATED 65 mg/dL; LDL/HDL RATIO 1.4 (<4.4); POTASSIUM 4.5 mmol/L (3.5-5.0); SODIUM 139 mmol/L (135-145); TOTAL PROTEIN 7.9 g/dL (6.7-8.2); TRIGLYCERIDES 324 mg/dL; VLDL CHOLESTEROL 65 mg/dL
[2022-09-04 15:39] LABS: THYROID STIMULATING HORMONE 0.59 uIU/mL (0.34-5.60)
[2022-09-04 15:43] LABS: ESTIMATED AVERAGE GLUCOSE 169 mg/dL (70-100); HEMOGLOBIN A1c% 7.5 % (4.27-6.07)
[2022-09-04 15:44] LABS: CREATININE,URINE 207.4 mg/dL; MICROALBUM/CREATININE RATIO,UR 69.9 ug/mg (<30.0); MICROALBUMIN,URINE 14.5 mg/dL (0-300.0)
== END 2022-09-04 12:08 | disposition home or self-care (01) ==
LOC: LAB.S 12:07
PROVIDERS: ATTEND Nurse Practitioner Family
DX: I10 Essential (primary) hypertension (principal); E78.2 Mixed hyperlipidemia; E11.65 Type 2 diabetes mellitus with hyperglycemia
CPT/HCPCS: 36415; 80053; 80061; 82043; 82570; 83036; 83721; 84443; 85025

== ENCOUNTER 2022-10-02 08:00 | Outpatient (CLI) | payer BC ==
--- NOTE | 2022-10-03 17:48 | XRAY Report ---
PROCEDURE: Hand 3 View LT INDICATIONS: LEFT FINGER PAIN TECHNIQUE: 3 views of the hand(s) acquired. COMPARISON: 04/11/2009 FINDINGS: Bones: No fractures or dislocations. Mild osteoarthritic changes are seen throughout left hand and wrist joints with joint space narrowing and subchondral sclerosis. No gross bony erosive changes. No suspicious bony lesions. Soft tissues: No suspicious soft tissue calcifications. 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 No fracture or dislocation. No bony erosive changes. Reviewed by: Dayne Sotelo MD on 10/03/2022 5:46 PM PST Approved by: Dayne Sotelo MD on 10/03/2022 5:46 PM PST Station ID: [id number]
== END 2022-10-02 23:59 | disposition home or self-care (01) ==
LOC: DI.S 08:00
PROVIDERS: ATTEND Registered Nurse
DX: M19.042 Primary osteoarthritis, left hand (principal); M19.032 Primary osteoarthritis, left wrist

== ENCOUNTER 2022-10-17 14:51 | Outpatient (CLI) | payer BC ==
--- NOTE | 2022-10-17 16:53 | XRAY Report ---
PROCEDURE: Hand 3 View LT INDICATIONS: LEFT HAND PAIN TECHNIQUE: 3 views of the hand(s) acquired. COMPARISON: Left hand radiographs 10/02/2022 FINDINGS: No definite acute displaced fracture identified. Particular degenerative changes redemonstrated. Rede monstrated fragmentation of the third digit distal phalanx tuft, probably remote. IMPRESSION: No acute osseous abnormality identified. If symptoms persist, follow-up radiographs and/or CT or MRI may be helpful for further evaluation. Remote appearing fracture third digit distal phalanx tuft. Reviewed by: Gerald Duffy MD on 10/17/2022 4:51 PM PST Approved by: Gerald Duffy MD on 10/17/2022 4:51 PM [facility] Station ID: [id number]
== END 2022-10-17 14:52 | disposition home or self-care (01) ==
LOC: DI.WOS 14:51
PROVIDERS: ATTEND Physician Assistant Surgical
DX: M79.645 Pain in left finger(s) (principal)

== ENCOUNTER 2022-12-04 09:41 | Outpatient (CLI) | payer BC ==
[2022-12-04 15:38] LABS: ALBUMIN 4.2 g/dL (3.2-5.5); ALBUMIN/GLOBULIN RATIO 1.3 (1.0-2.2); ALKALINE PHOSPHATASE 60 IU/L (42-121); ALT ALANINE AMINOTRANSFERASE 30 IU/L (10-60); AST ASPARTATE AMINOTRANSFERASE 25 IU/L (10-42); BILIRUBIN,TOTAL 0.5 mg/dL (0.2-1.0); BUN - BLOOD UREA NITROGEN 14 mg/dL (6-20); CALCIUM 9.5 mg/dL (8.5-10.3); CARBON DIOXIDE - CO2 29 mmol/L (21-32); CHLORIDE 101 mmol/L (101-111); CHOL/HDL RATIO 3.3 (<4.4); CHOLESTEROL 133 mg/dL; CREATININE 0.8 mg/dL (0.4-1.0); GFR - MDRD 78 (>89); GLUCOSE 165 mg/dL (70-100); HDL CHOLESTEROL 40 mg/dL; LDL CHOLESTEROL,CALCULATED 24 mg/dL; LDL/HDL RATIO 0.6 (<4.4); POTASSIUM 4.9 mmol/L (3.5-5.0); SODIUM 138 mmol/L (135-145); TOTAL PROTEIN 7.4 g/dL (6.7-8.2); TRIGLYCERIDES 343 mg/dL; VLDL CHOLESTEROL 69 mg/dL
[2022-12-04 20:45] LABS: ESTIMATED AVERAGE GLUCOSE 194 mg/dL (70-100); HEMOGLOBIN A1c% 8.4 % (4.27-6.07)
== END 2022-12-04 09:42 | disposition home or self-care (01) ==
LOC: LAB.S 09:41
PROVIDERS: ATTEND Nurse Practitioner Family
DX: E11.8 Type 2 diabetes mellitus with unspecified complications (principal); E78.2 Mixed hyperlipidemia
CPT/HCPCS: 36415; 80053; 80061; 83036; 83721

== ENCOUNTER 2022-12-19 14:33 | Outpatient (CLI) | payer BC ==
--- NOTE | 2022-12-19 14:09 | XRAY Report ---
PROCEDURE: Finger(s) LT INDICATIONS: LEFT 5TH FINGER FRACTURE TECHNIQUE: AP hand, 3 views of the little finger(s) acquired. COMPARISON: None FINDINGS: Bones: No fractures or dislocations. Remote trauma of the middle finger tuft is seen. No suspicious bony lesions. Soft tissues: No suspicious soft tissue calcifications. IMPRESSION: No acute traumatic abnormality of the fifth finger. Reviewed by: Terry Patel on 12/19/2022 2:08 PM [facility] Approved by: Terry Patel on 12/19/2022 2:08 PM [facility] Station ID: [id number]
== END 2022-12-19 14:34 | disposition home or self-care (01) ==
LOC: DI.WOS 14:33
PROVIDERS: ATTEND Physician Assistant Surgical
DX: S62.647A Nondisplaced fracture of proximal phalanx of left little finger, initial encounter for closed fracture (principal)

== ENCOUNTER 2023-02-27 09:35 | Outpatient (CLI) | payer BC ==
[2023-02-27 20:33] LABS: ESTIMATED AVERAGE GLUCOSE 174 mg/dL (70-100); HEMOGLOBIN A1c% 7.7 % (4.27-6.07)
== END 2023-02-27 09:36 | disposition home or self-care (01) ==
LOC: LAB.S 09:35
PROVIDERS: ATTEND Nurse Practitioner Family
DX: E11.8 Type 2 diabetes mellitus with unspecified complications (principal)
CPT/HCPCS: 36415; 83036

== ENCOUNTER 2023-05-11 12:45 | Outpatient (CLI) | payer BC ==
--- NOTE | 2023-05-12 11:11 | Ultrasound Report ---
PROCEDURE: Head or Neck Soft Tissue INDICATIONS: GOITER TECHNIQUE: Real-time scanning was performed of the thyroid gland, with image documentation. COMPARISON: None FINDINGS: Right: Thyroid lobe measures 7.3 x 2.6 x 3.0 cm, and is heterogeneous in echotexture. Left: Thyroid lobe measures 6.6 x 2.9 x 3.4 cm, and is heterogeneous in echotexture. Isthmus: 17 mm thick. Nodule number: One Location: Right lobe inferior Size: 1.3 x 0.8 x 1.0 cm. Composition: Solid (2 points). Echogenicity: Hypoechoic (2 points). Shape: wider than tall. Margins: Smooth (0 points). Echogenic foci: None (0 points). Total points: 4 ACR TI-RADS category: Moderately suspicious (4-6 points). IMPRESSION: 1. Enlarged heterogeneous thyroid gland. Multiple nodules are present, however the heterogeneous appe arance of the thyroid gland and ill-defined borders of the nodules make measurement of discrete nodul es difficult. Definition of a nodule for tissue sampling and reproducibility of nodule identification may be difficult. A single clearly defined nodule was documented as below. 2. A 1.3 cm nodule is present at the inferior right lobe of the thyroid gland, not meeting TI-RADS cr iteria for FNA recommendation. Follow-up is recommended as below. ACR TI-RADS definitions and recommendations: TI-RADS 1 (benign): 0 points. FNA not needed. TI-RADS 2 (not suspicious): 2 points. FNA not needed. TI-RADS 3 (mildly suspicious): 3 points. "FNA if 2.5 cm or larger, follow up if 1.5 cm or larger (at 1, 3, and 5 years). TI-RADS 4 (moderately suspicious): 4-6 points. "FNA if 1.5 cm or larger, follow up if 1 cm or larger (at 1, 2, 3, and 5 years). TI-RADS 5 (highly suspicious): 7 points or more. "FNA if 1 cm or larger, follow up if 0.5 cm or larger (every year for 5 years). Reviewed by: Gerald Duffy MD on 05/12/2023 11:09 AM PDT Approved by: Gerald Duffy MD on 05/12/2023 11:09 AM PDT Station ID: [id number]
== END 2023-05-11 12:46 | disposition home or self-care (01) ==
LOC: DI 12:45
PROVIDERS: ATTEND Nurse Practitioner Family
DX: E04.2 Nontoxic multinodular goiter (principal)

== ENCOUNTER 2023-06-26 08:51 | Outpatient (CLI) | payer BC ==
[2023-06-26 14:55] LABS: ALBUMIN 4.7 g/dL (3.2-5.5); ALBUMIN/GLOBULIN RATIO 1.7 (1.0-2.2); ALKALINE PHOSPHATASE 62 IU/L (42-121); ALT ALANINE AMINOTRANSFERASE 24 IU/L (10-60); AST ASPARTATE AMINOTRANSFERASE 19 IU/L (10-42); BILIRUBIN,TOTAL 0.5 mg/dL (0.2-1.0); BUN - BLOOD UREA NITROGEN 12 mg/dL (6-20); CALCIUM 9.8 mg/dL (8.5-10.3); CARBON DIOXIDE - CO2 29 mmol/L (21-32); CHLORIDE 101 mmol/L (101-111); CHOL/HDL RATIO 2.6 (<4.4); CHOLESTEROL 118 mg/dL; CREATININE 0.7 mg/dL (0.6-1.3); GFR - MDRD 90 (>89); GLUCOSE 167 mg/dL (74-104); HDL CHOLESTEROL 46 mg/dL; LDL CHOLESTEROL,CALCULATED 31 mg/dL; LDL/HDL RATIO 0.7 (<4.4); POTASSIUM 4.4 mmol/L (3.5-4.5); SODIUM 135 mmol/L (135-145); TOTAL PROTEIN 7.4 g/dL (6.4-8.9); TRIGLYCERIDES 204 mg/dL (48-352); VLDL CHOLESTEROL 41 mg/dL
[2023-06-26 15:14] LABS: ESTIMATED AVERAGE GLUCOSE 169 mg/dL (70-100); HEMOGLOBIN A1c% 7.5 % (4.27-6.07)
== END 2023-06-26 08:52 | disposition home or self-care (01) ==
LOC: LAB.S 08:51
PROVIDERS: ATTEND Nurse Practitioner Family
DX: R10.9 Unspecified abdominal pain (principal); E11.8 Type 2 diabetes mellitus with unspecified complications; E04.9 Nontoxic goiter, unspecified; E78.2 Mixed hyperlipidemia; G89.29 Other chronic pain
CPT/HCPCS: 36415; 80053; 80061; 83036; 83721; 84439; 84443

== ENCOUNTER 2024-02-04 08:00 | Outpatient (CLI) | payer BC, OTHER ==
--- NOTE | 2024-02-04 17:42 | XRAY Report ---
PROCEDURE: Chest 2V INDICATIONS: CHEST DISCOMFORT TECHNIQUE: 2 views of the chest were acquired. COMPARISON: 05/07/2021. FINDINGS: Surgical changes and devices: None. Lungs and pleura: No pleural effusions or pneumothorax. Lungs are clear. Mediastinum: Mediastinal contours appear normal. Heart size is normal. Bones and chest wall: No suspicious bony lesions. Overlying soft tissues appear unremarkable. IMPRESSION: No acute cardiopulmonary process. Reviewed by: Dayne Sotelo MD on 02/04/2024 5:40 PM PDT Approved by: Dayne Sotelo MD on 02/04/2024 5:40 PM PDT Station ID: [id number]
== END 2024-02-04 23:59 | disposition home or self-care (01) ==
LOC: DI.S 08:00
PROVIDERS: ATTEND Physician Assistant Medical
DX: J20.9 Acute bronchitis, unspecified (principal); R07.89 Other chest pain

== ENCOUNTER 2024-02-10 08:25 | Emergency (ER) | payer OTHER ==
[2024-02-10 09:47] LABS: BASOPHILS % (AUTO) 0.4 %; EOSINOPHILS # (AUTO) 0.1 10^3/uL (0.0-0.7); EOSINOPHILS % (AUTO) 1.1 %; HCT - HEMATOCRIT 47.5 % (37.0-47.0); HGB - HEMOGLOBIN 15.5 g/dL (12.0-16.0); LYMPHOCYTES # (AUTO) 2.7 10^3/uL (1.5-3.5); LYMPHOCYTES % (AUTO) 34.9 %; MEAN CORPUSCULAR HEMOGLOBIN 28.8 pg (27.0-31.0); MEAN CORPUSCULAR HGB CONC 32.6 g/dL (32.0-36.0); MEAN CORPUSCULAR VOLUME 88.1 fL (81.0-99.0); MEAN PLATELET VOLUME 10.7 fL (7.9-10.8); MONOCYTES # (AUTO) 0.7 10^3/uL (0.0-1.0); MONOCYTES % (AUTO) 9.5 %; NEUTROPHILS # (AUTO) 4.2 10^3/uL (1.5-6.6); NEUTROPHILS % (AUTO) 53.7 %; PLT - PLATELET COUNT 146 10^3/uL (130-450); RED BLOOD COUNT 5.39 10^6/uL (4.20-5.40); RED CELL DISTRIBUTION WIDTH 13.2 % (12.0-15.0); WHITE BLOOD COUNT 7.8 x10^3/uL (4.8-10.8)
[2024-02-10 09:50] LABS: VBG HCO3 24.4 mmol/L (23-28); VBG PCO2 33.1 mmHg (41-51); VBG PH 7.486 (7.31-7.41)
[2024-02-10 09:51] LABS: VBG BASE EXCESS 1.8 mmol/L (-2 - +2); VBG OXYGEN SATURATION 93.5 % (60-80); VBG TOTAL CO2 25.4 mmol/L (24-29)
[2024-02-10] MEDS: SODIUM CHLORIDE 0.9% 1,000 ML IV STA (10:02)
[2024-02-10] MEDS: ONDANSETRON 4 MG/2 ML VIAL IVP STA (10:04)
[2024-02-10 10:09] LABS: KETONES, SERUM (ACETEST) SMALL (NEGATIVE)
[2024-02-10 10:15] LABS: BILIRUBIN,URINE SMALL (NEGATIVE); GLUCOSE, URINE (UA) NEGATIVE (NEGATIVE); KETONES,URINE (UA) 15 mg/dL (NEGATIVE); LEUKOCYTE ESTERASE, URINE TRACE (NEGATIVE); NITRITE,URINE NEGATIVE (NEGATIVE); OCCULT BLOOD,URINE NEGATIVE (NEGATIVE); PH,URINE 5.5 PH (5.0-7.5); PROTEIN,URINE 100 mg/dL (NEGATIVE); UROBILINOGEN,URINE 0.2 (NORMAL) E.U./dL (NORMAL)
[2024-02-10 10:17] LABS: ALBUMIN 4.3 g/dL (3.2-5.5); ALBUMIN/GLOBULIN RATIO 1.3 (1.0-2.2); ALKALINE PHOSPHATASE 100 IU/L (42-121); ALT ALANINE AMINOTRANSFERASE 175 IU/L (10-60); AST ASPARTATE AMINOTRANSFERASE 123 IU/L (10-42); BILIRUBIN,TOTAL 0.7 mg/dL (0.2-1.0); BUN - BLOOD UREA NITROGEN 22 mg/dL (6-20); CALCIUM 10.2 mg/dL (8.5-10.3); CARBON DIOXIDE - CO2 25 mmol/L (21-32); CHLORIDE 101 mmol/L (101-111); CREATININE 0.8 mg/dL (0.6-1.3); GFR - MDRD 77 (>89); GLUCOSE 117 mg/dL (74-104); LIPASE 45 U/L (11-82); POTASSIUM 3.3 mmol/L (3.5-4.5); SODIUM 136 mmol/L (135-145); TOTAL PROTEIN 7.5 g/dL (6.4-8.9)
[2024-02-10 10:19] LABS: CLARITY,URINE HAZY (CLEAR); HCG UR QUAL NEGATIVE
[2024-02-10 10:22] LABS: BACTERIA,URINE Few /HPF (None Seen); MUCUS,URINE Few Strands; RBC,URINE None Seen /HPF (0-5); SQUAMOUS EPITHELIAL CELL,UR MOD Squamous (<= Few)
[2024-02-10] MEDS: POTASSIUM BICARB 25 MEQ TABLET PO ONE (10:59)
--- NOTE | 2024-02-10 11:28 | ED Physician Documentation ---
History of Present Illness - Stated complaint Stated Complaint: HIGH BS,FARNSWORTH,SWEATS - Chief complaint Chief Complaint: General - History obtained from History obtained from: Patient - Additonal information Additional information: Patient is a 48-year-old female with a history of insulin-dependent diabetes and high blood pressure presenting for evaluation of concerns of high blood sugars. She has not been on her medications in almost a year due to loss of insurance and PCP. She recently developed a URI when seen at the walk-in clinic and was given a course of prednisone. She then noted that blood sugars were elevated. She was checking them because she started feeling off. Reported feeling fatigued, having a headache with some nausea. Was aware that steroids could mess up her blood sugars. Was getting some readings at home of 500 on some days. She did have some leftover Lantus but is unsure how to take it. She has reestablished care with a PCP and has a new appointment coming up next Friday. Denies chest pain, shortness of air, cough, abdominal pain, diarrhea. Review of Systems Constitutional: denies: Fever Cardiac: denies: Chest pain / pressure Respiratory: denies: Dyspnea GI: reports: Nausea. 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: LEEP (Cervical surgery), Tubal ligation - Present Medications Home Medications: Ambulatory Orders Medication Instructions Recorded Confirmed Atorvastatin Calcium 20 mg ORAL DAILY 02/20/21 03/12/22 Insulin Glargine [Lantus Solostar] 43 unit SUBQ QPM 02/20/21 03/12/22 Metformin HCl [Metformin ER 1,000 mg ORAL BID 02/20/21 03/12/22 Gastric] lisinopriL [Prinivil] 5 mg PO DAILY 02/20/21 03/12/22 Aspirin EC [Ecotrin] 81 mg PO DAILY 03/12/22 02/10/24 DULoxetine [Cymbalta] 60 mg PO DAILY 03/12/22 03/12/22 Dulaglutide [Trulicity] 1 mg SQ Q7D 03/12/22 03/12/22 Ondansetron Odt [Zofran] 4 mg TL Q6H PRN #10 tablet 02/10/24 metFORMIN [Glucophage] 500 mg PO BIDWM #60 tablet 02/10/24 - Allergies Allergies/Adverse Reactions: Allergies Allergy/AdvReac Type Severity Reaction Status Date / Time Sulfa (Sulfonamide Allergy Intermediate welts Verified 02/10/24 08:31 Antibiotics) adhesive tape Allergy Hives Verified 02/10/24 08:31 - Social History Does the pt smoke?: Yes Smoking Status: Former smoker Does the pt drink ETOH?: No Does the pt have substance abuse?: No - Immunizations Immunizations are current?: Yes - POLST Patient has POLST: No PD ED PE NORMAL - General General: Alert and oriented X 3, No acute distress, Well developed/nourished - HEENT HEENT: Atraumatic, Moist mucous membranes, Pharynx benign - Neck Neck: Supple, no meningeal sign - Cardiac Cardiac: RRR, Strong equal pulses - Respiratory Respiratory: No respiratory distress, Clear bilaterally - Abdomen Abdomen: Normal bowel sounds, Soft, Non tender, Non distended - Derm Derm: Warm and dry - Neuro Neuro: Alert and oriented X 3, No motor deficit, Normal speech Results - Vitals Vitals: Oxygen O2 Source Room air - Labs Labs: Laboratory Tests 02/10/24 02/10/24 02/10/24 09:30 09:30 09:30 WBC 7.8 RBC 5.39 Hgb 15.5 Hct 47.5 H MCV 88.1 MCH 28.8 MCHC 32.6 RDW 13.2 Plt Count 146 MPV 10.7 Neut # (Auto) 4.2 Lymph # (Auto) 2.7 [place] # (Auto) 0.7 Eos # (Auto) 0.1 Baso # (Auto) 0.0 Absolute Nucleated RBC 0.00 Nucleated RBC % 0.0 VBG pH 7.486 H VBG pCO2 33.1 L VBG pO2 61.0 H VBG HCO3 24.4 VBG Total CO2 25.4 VBG O2 Saturation 93.5 H VBG Base Excess 1.8 Sodium 136 Potassium 3.3 L Chloride 101 Carbon Dioxide 25 Anion Gap 10.0 BUN 22 H Creatinine 0.8 Estimated GFR (MDRD) 77 L Glucose 117 H Estimat Average Glucose Hemoglobin A1c % Calcium 10.2 Total Bilirubin 0.7 AST 123 H ALT 175 H Alkaline Phosphatase 100 Total Protein 7.5 Albumin 4.3 Globulin 3.2 Albumin/Globulin Ratio 1.3 Lipase 45 Urine Color Urine Clarity Urine pH Ur Specific [place] Urine Protein Urine Glucose (UA) Urine Ketones Urine Occult Blood Urine Nitrite Urine Bilirubin Urine Urobilinogen Ur Leukocyte Esterase Urine RBC Urine WBC Ur Squamous Epith Cells Urine Bacteria Urine Mucus Ur Microscopic Review Urine Culture Comments Urine HCG, Qual Serum Ketones SMALL H 02/10/24 02/10/24 09:30 10:00 WBC RBC Hgb Hct MCV MCH MCHC RDW Plt Count MPV Neut # (Auto) Lymph # (Auto) [place] # (Auto) Eos # (Auto) Baso # (Auto) Absolute Nucleated RBC Nucleated RBC % VBG pH VBG pCO2 VBG pO2 VBG HCO3 VBG Total CO2 VBG O2 Saturation VBG Base Excess Sodium Potassium Chloride Carbon Dioxide Anion Gap BUN Creatinine Estimated GFR (MDRD) Glucose Estimat Average Glucose 358 H Hemoglobin A1c % 14.1 H Calcium Total Bilirubin AST ALT Alkaline Phosphatase Total Protein Albumin Globulin Albumin/Globulin Ratio Lipase Urine Color YELLOW Urine Clarity HAZY Urine pH 5.5 Ur Specific [place] >=1.030 H Urine Protein 100 H Urine Glucose (UA) NEGATIVE Urine Ketones 15 H Urine Occult Blood NEGATIVE Urine Nitrite NEGATIVE Urine Bilirubin SMALL H Urine Urobilinogen 0.2 (NORMAL) Ur Leukocyte Esterase TRACE H Urine RBC None Seen Urine WBC 6-10 H Ur Squamous Epith Cells MOD Squamous H Urine Bacteria Few Urine Mucus Few Strands Ur Microscopic Review INDICATED Urine Culture Comments NOT INDICATED Urine HCG, Qual NEGATIVE Serum Ketones PD Medical Decision Making - ED course Complexity details: reviewed results, re-evaluated patient, d/w patient ED course: Patient is a 48-year-old female with a history of diabetes who is recently been off her medications. She is concerned about high blood sugars as she was recently on a course of steroids. Clinically she is nontoxic and well-appearing and does not appear to be in DKA. Labs are obtained including CBC, chemistries, venous blood gas and serum ketones along with urine analysis.Venous pH is 7.48. Patient is not in DKA.Potassium of 3.3. Mild elevation in AST and ALT. Will monitor serum ketones. Patient feeling better here after IV fluids and Zofran. We discussed reinitiating her diabetes medications but I did recommend checking an A1c as her glucose here is not significantly elevated. Her A1c did return back at 14.5 and I did call and discussed this with the patient and we will send in a prescription for metformin. Will start her on the initiating dose and she understands that she will likely need more medications for her diabetes as she was previously on insulin but does have an upcoming appointment with her PCP in 1 week.She also understands concerning symptoms to return for. Departure - Departure Disposition: 01 Home, Self Care Clinical Impression: Nausea, Hypokalemia, Abnormal liver function Condition: Stable Instructions: Blood Sugar Check, Diabetes Healthy Meals Prescriptions: metFORMIN [Glucophage] 500 mg PO BIDWM #60 tablet Ondansetron Odt [Zofran] 4 mg TL Q6H PRN #10 tablet PRN Reason: Nausea / Vomiting Comments: Please follow-up with your new primary care doctor in 1 week as already scheduled. I have sent a prescription for an antinausea medication to [facility] in [place]. I have also added on a lab called a hemoglobin A1c To better evaluate your diabetes and blood sugars. I will give you a call later this afternoon when I have the results. Please keep a log of your blood sugars. On your testing today your potassium was slightly low and your liver markers were slightly elevated. I would recommend having these rechecked when you are seen by your PCP next week. Return to the ER if you develop any worsening symptoms. Forms: PCP List Discharge Date/Time: 02/10/24 12:15
[2024-02-10 12:18] VITALS: BP 120/56; O2SAT 96
[2024-02-10 12:27] LABS: ESTIMATED AVERAGE GLUCOSE 358 mg/dL (70-100); HEMOGLOBIN A1c% 14.1 % (4.27-6.07)
== END 2024-02-10 12:15 | disposition home or self-care (01) ==
LOC: ED 08:25
DX: E11.9 Type 2 diabetes mellitus without complications (principal); E87.6 Hypokalemia; R79.89 Other specified abnormal findings of blood chemistry; I10 Essential (primary) hypertension; Z87.891 Personal history of nicotine dependence; Z91.141 Patient's other noncompliance with medication regimen due to financial hardship; Z79.84 Long term (current) use of oral hypoglycemic drugs; Z79.4 Long term (current) use of insulin
CPT/HCPCS: 36415; 80053; 81001; 81025; 82009; 82803; 83036; 83690; 85025; 96374; 99284; A9270; 80143; 80179; 81003; 87086